=== PATIENT | male | born 1965 | race Caucasian/White ===

== ENCOUNTER → 2020-09-07 | Outpatient (CLI) | payer BC ==
[2020-09-07 09:32] LABS: Appearance,Urine Clear (Clear); Bilirubin,Urine Negative (Negative); Blood,Urine Negative (Negative); Color,Urine Yellow; Glucose,Urine (UA) Negative (Negative); Ketones,Urine Negative (Negative); Leukocyte Esterase,Urine Negative (Negative); Nitrite,Urine Negative (Negative); PH, Urine 5.5 (5.0-8.0); Protein,Urine Trace (Negative); Specific Gravity,Urine 1.028 (1.001-1.035); Urobilinogen,Urine <2.0 mg/dL (<2.0)
[2020-09-07 09:37] LABS: INR 0.9 (<1.2)
[2020-09-07 09:38] LABS: Prothrombin Time 9.8 sec (9.0-12.0)
[2020-09-07 09:40] LABS: Partial Thromboplastin Time 21.5 sec (22.0-30.0)
[2020-09-07 09:42] LABS: Basophils % (A) 1 %; Eosinophils # (A) 0.2 k/uL (0-0.7); Eosinophils % (A) 3 %; HCT 44.6 % (39.0-53.0); HGB 14.9 gm/dL (13.0-17.5); Lymphocytes # (A) 1.8 k/uL (1.0-4.8); Lymphocytes % (A) 31 %; MCH 29.7 pg (25.0-35.0); MCHC 33.3 g/dL (31.0-37.0); MCV 89.1 fL (80.0-100.0); Monocytes # (A) 0.3 k/uL (0-1.0); Monocytes % (A) 6 %; Neutrophils # (A) 3.5 k/uL (1.3-7.7); Neutrophils % (A) 59 %; Platelet Count 207 k/uL (150-450); RBC 5.01 m/uL (4.30-5.90); RDW 12.9 % (11.5-15.5); WBC 5.9 k/uL (3.8-10.6)
--- NOTE | 2020-09-07 09:55 | XR ---
EXAMINATION TYPE: XR chest 2V DATE OF EXAM: 09/07/2020 COMPARISON: NONE HISTORY: Preop spine surgery TECHNIQUE: Frontal and lateral views of the chest are obtained. FINDINGS: Heart size is within normal limits. No focal consolidation, pneumothorax or pleural effusi on. Prominent Left cardiophrenic fat pad. Degenerative changes of the thoracic spine. IMPRESSION: 1. No acute pulmonary disease. Prominent left cardiophrenic fat pad.
== END | disposition home or self-care (01) ==
LOC: LABPAT 08:20
PROVIDERS: ATTEND Orthopaedic Surgery Orthopaedic Surgery of the Spine
DX: Z01.818 Encounter for other preprocedural examination (principal); M51.9 Unspecified thoracic, thoracolumbar and lumbosacral intervertebral disc disorder
CPT/HCPCS: 36415; 71046; 81003; 85025; 85610; 85730; 87070; 87086

== ENCOUNTER → 2020-09-07 | Outpatient (CLI) | payer BC ==
[2020-09-07 21:03] LABS: African American GFR (CKD) 112.6 (60.0-200.0); Albumin 4.4 g/dL (3.80-4.90); Albumin/Globulin Ratio 2.44 (1.60-3.17); Anion Gap 10.4 mmol/L (4.00-12.00); BUN/Creat Ratio 17.78 Ratio (12.00-20.00); Calcium 9.6 mg/dL (8.7-10.3); Carbon Dioxide 25.6 mmol/L (21.6-31.8); Globulin 1.8 g/dL (1.6-3.3); Non-African American GFR(CKD) 97.2 (60.0-200.0); Potassium 4.3 mmol/L (3.5-5.5); Total Bilirubin 0.5 mg/dL (0.3-1.2); Total Protein 6.2 g/dL (6.2-8.2)
== END | disposition home or self-care (01) ==
LOC: LABWHC1 08:24
PROVIDERS: ATTEND Family Medicine
DX: Z00.00 Encounter for general adult medical examination without abnormal findings (principal)
CPT/HCPCS: 36415; 80053

== ENCOUNTER 2020-09-14 06:58 | Day surgery (SDC) | payer BC ==
[2020-09-07 15:14] VITALS: BMI 45.9
[~2020-09-14 06:58] MED LIST: ceFAZolin 1,000 MG in SODIUM CHLORIDE 0.9% IRRIGATIO 1,000 ML IRRIGATION PRN; ceFAZolin 3 GM in SODIUM CHLORIDE 0.9% 100 ML IVPB PRN
[2020-09-14] MEDS ORDERED: LIDOCAINE 1% (10MG/ML) FOR IV START INTRADERMA PRN (07:12)
[2020-09-14] MEDS ORDERED: ONDANSETRON 4 MG/2 ML VIAL IVP ONE (07:12)
[2020-09-14] MEDS ORDERED: LACTATED RINGERS 1,000 ML IV SCH (07:12)
[2020-09-14] MEDS ORDERED: fentaNYL (PF) 50 MCG/ML 2 ML AMP ONE (07:54)
[2020-09-14] MEDS ORDERED: SUCCINYLCHOLINE CHLORIDE VIAL 200 MG/10 ML VIAL IV ONE (07:54)
[2020-09-14] MEDS ORDERED: MIDAZOLAM 2 MG/2 ML VIAL ONE (07:54)
[2020-09-14] MEDS ORDERED: PHENYLEPHRINE-0.9% NACL SYG 1,000 MCG/10 ML SYRINGE ONE (07:54)
[2020-09-14] MEDS ORDERED: PROPOFOL 10 MG/ML 20 ML VIAL IV ONE (07:54)
[2020-09-14] MEDS ORDERED: LIDOCAINE 1% INJ 10MG/ML (20 ML MDV) ONE (07:54)
[2020-09-14] MEDS ORDERED: GLYCOPYRROLATE 0.2 MG/ML 2 ML VIAL ONE (07:54)
[2020-09-14] MEDS ORDERED: ROCURONIUM 10 MG/ML (5 ML VIAL) IV ONE (07:54)
[2020-09-14] MEDS ORDERED: NEOSTIGMINE 1 MG/ML 10 ML VIAL ONE (07:54)
[2020-09-14] MEDS ORDERED: methylPREDNISolone ACETATE 80 MG/ML 1 ML VIAL INJ ONE (08:41)
[2020-09-14] MEDS ORDERED: GELATIN SPONGE,ABSORB (LARGE) 1 EACH SPONGE TOPICAL ONE (08:41)
[2020-09-14] MEDS ORDERED: THROMBIN (BOVINE) 5,000 UNIT VIAL TOPICAL ONE (08:41)
[2020-09-14] MEDS ORDERED: LIDOCAINE 1%-EPI 1:100,000 20 ML VIAL SQ ONE (09:00)
[2020-09-14] MEDS ORDERED: LACTATED RINGERS 1,000 ML IV ONE (09:03)
[2020-09-14] MEDS ORDERED: ONDANSETRON 4 MG/2 ML VIAL IVP PRN (10:06)
[2020-09-14] MEDS ORDERED: HYDROcodone/APAP 5-325MG 1 EACH TAB PO PRN ×3 (10:06→10:09)
[2020-09-14] MEDS ORDERED: ACETAMINOPHEN TAB 325 MG TAB PO PRN (10:06)
[2020-09-14] MEDS ORDERED: CYCLOBENZAPRINE 10 MG TAB PO PRN (10:06)
[2020-09-14] MEDS ORDERED: diazePAM 5 MG TAB PO PRN (10:06)
[2020-09-14] MEDS ORDERED: HYDROmorphone 0.5 MG/0.5 ML SYRINGE IVP PRN (10:06)
[2020-09-14] MEDS ORDERED: HYDROmorphone 1 MG/ML 1 ML SYRINGE IVP PRN (10:06)
[2020-09-14] MEDS ORDERED: BENZOCAINE/MENTHOL LOZENG 1 EACH LOZENGE MUCOUS MEM PRN (10:06)
[2020-09-14] MEDS ORDERED: IBUPROFEN 800 MG TAB PO PRN (10:09)
--- NOTE | 2020-09-14 10:14 | P.OP ---
Date of Procedure: 09/14/20 Preoperative Diagnosis: Herniated nucleus pulposis L5-S1, left lower extremity radiculopathy, left lower extremity weakness Postoperative Diagnosis: Herniated nucleus pulposis L5-S1, left lower extremity radiculopathy, left lower extremity weakness Plus findings of large osteophytic spur at the L5-S1 vertebral body junction Anesthesia: GETA Pathology: none sent Condition: stable Disposition: PACU Description of Procedure: BRIEF OPERATIVE NOTE Preoperative Diagnosis:Herniated nucleus pulposis L5-S1, left lower extremity radiculopathy, left lower extremity weakness Postoperative Diagnosis:Herniated nucleus pulposis L5-S1, left lower extremity radiculopathy, left lower extremity weakness, plus findings a large posterior osteophytic spur at the posterior margin of the vertebral bodies of L5-S1 Procedure: Laminectomy and decompression L5-S1 with excision of osteophyte spur L5-S1 Discectomy for decompression L5-S1 Surgeon: Dr. Altman Associate Financial Advisor: Asim Calvo is present throughout the entire the case persistence during positioning, dissection, exposure, visualization, and all crucial elements of the case as well as closure. Anesthesia: General anesthesia Estimated blood loss: Approximately 50 mL Complications: None apparent Components implanted: None Disposition: To recovery room in good stable condition. OPERATIVE INDICATIONS The patient has been having issues in their lower back and lower extremities. Patient has been expressing symptoms at his back and lower extremities for several years. Over the past 5 or 6 years he's been receiving treatment in terms his back and his lower extremities. He is not having significant worsening over the past year and particularly the past several months. He is found have disc herniations both at L4 5 and L5-S1. His primary issue was that of radicular symptoms in his left lower extremity which correlated well with his disc herniation and findings at L5-S1 level on the left. There is large disc herniation with severe foraminal stenosis evidence of ossific spurring causing further stenosis at the level. The patient has been through conservative treatment. He is not having any prolonged benefit despite aggressive conservative treatment. We discussed various treatment options including surgery, and the patient wishes to proceed with surgery We discussed the risk, patient's alternatives and benefits of surgery including but not limited to, risk of bleeding risk of infection, risk of need for further surgery, risk of decreased, loss of motion, loss of function, nerve damage, paralysis, heart attack, blindness and . OPERATIVE SUMMARY After discussing all the risks, patient alternatives and benefits at length, the patient elected to proceed with surgical intervention, signed informed consent, and presented for their procedure. The patient was seen and examined in the preoperative holding area and the surgical site was marked. The patient was given antibiotics and brought to the operating room. The patient was sedated and intubated by anesthesia in standard fashion. The patient was positioned on to the operating room table in a prone position on the appropriate frame which was well-padded and well molded. We were careful to pad any bony prominences and pressure points. We were careful to maintain the patient's cervical spine and good neutral alignment and position throughout. The patient was prepped and draped in a normal standard fashion. An appropriate timeout and keystone protocol performed. We were able to proceed with the surgery. Fluoroscopy was utilized to establish the appropriate level. The local wound area was infiltrated with local anesthetic. An incision was made at the midline longitudinally over the appropriate levels at L5-S1. Dissection was taken down subcutaneously to the level of the fascia which was split midline. Dissection was taken over the lamina. Intraoperative fluoroscopy was taken which showed a marker at the appropriate level. With the appropriate level positively confirmed, we were able to proceed with laminectomy at L5-S1. The wound was copiously irrigated and suctioned dry as had been done periodically throughout the case. I performed a laminectomy with a combination of curettes and a high-speed bur and Kerrison rongeurs. A small medial facetectomy was performed again further access. A partial foraminotomy was also performed. Portions of the ligamentum flavum were taken down to expose the dura and traversing nerve root. I was able to mobilize the traversing nerve root and gain access to the disc space. Note was made of obvious compression from the disc. Protecting the soft tissue structures, a small annulotomy was established. I was able to perform discectomy and remove any extruded disc fragments and any loose fragments from within the disc itself. There is some severe disc desiccation noted. I tried to preserve the disc annulus that appeared stable. There is findings of large posterior spurring particularly at the inferior margin of L5 with old disc calcification which had to be removed piecemeal to further enhance the decompression. I was able to remove all loose fragments of disc and any loose annulus. There were no further extruded fragments noted. There is no evidence of dural tear or leak. There is some abrasive type of appearance to the traversing nerve root. The patient did not have any evidence of leak with Valsalva maneuver. I decided to place some Tisseel over the brace dura to enhance some healing at the area. There is no evidence of any dural leak with Valsalva maneuver. Good hemostasis maintained. The wound was copiously irrigated and suctioned dry. I placed 40 mg of Medrol over the peridural area prior to closure. Good decompression and discectomy was noted. We were able to proceed with closure. The fascia was closed for a watertight closure. The subcuticular tissue was closed with absorbable suture. The wound was cleaned and dried and dressed with the appropriate dressing. The drapes were broken down. The patient was gently rolled back onto their hospital bed being careful to maintain their cervical spine and good neutral alignment and position. They were woken up by anesthesia, extubated, and brought to the recovery room in good stable condition. The patient will be admitted to the hospital for observation and for appropriate postoperative care, medical management and monitoring. We will continue to follow them closely about the postoperative course.
--- NOTE | 2020-09-14 10:46 | FL ---
EXAMINATION TYPE: FL guidance operating room, XR lumbar spine 2 or 3V DATE OF EXAM: 09/14/2020 CLINICAL HISTORY: Low back pain. TECHNIQUE: Fluoroscopy. Lumbar spine intraoperative 2 views. COMPARISON: None. FINDINGS: Fluoroscopic guidance was provided during laminectomy and discectomy procedure performed ivana Altman. A total of 1 seconds of fluoroscopic time was utilized during the procedure and 1 spot intraoperative image is acquired. Intraoperative image shows metallic pointer localized near lumbosac ral junction for surgical planning. IMPRESSION: As Above.
[2020-09-14] MEDS: HYDROmorphone 0.5 MG/0.5 ML SYRINGE IVP PRN ×2 (11:04→11:17)
[2020-09-14] MEDS: KETOROLAC 15 MG/ML 1 ML VIAL IVP PRN ×2 (11:44→17:43)
[2020-09-14] MEDS: IBUPROFEN 600 MG TAB PO SCH ×2 (15:49→21:51)
[2020-09-14] MEDS: ceFAZolin 3 GM in SODIUM CHLORIDE 0.9% 100 ML IVPB SCH ×2 (15:49→23:07)
[2020-09-14] MEDS: SODIUM CHLORIDE 0.9% 1,000 ML IV SCH (15:50)
[2020-09-14 20:28] VITALS: RESP 18
[2020-09-15] MEDS: SODIUM CHLORIDE 0.9% 1,000 ML IV SCH ×2 (00:57→04:21)
[2020-09-15] MEDS: IBUPROFEN 600 MG TAB PO SCH (04:22)
[2020-09-15 05:50] VITALS: BP 125/76; PULSE 74; TEMP 97.9
[2020-09-15] MEDS ORDERED: LOSARTAN 50 MG TAB PO SCH (09:00)
--- NOTE | 2020-09-15 09:26 | P.DS ---
Providers Date of admission: 08/14/20 Attending physician: Ramin Altman Primary care physician: Matthias Urias MD Hospital Course: The patient presented on the day of admission as per their operative note. He feels he is making progress. He says the sharp pain in his left lower extremity is improved. He is not having any headaches. He is sitting up walking around quite well. He is voiding freely. Physical Exam The incision site is clean dry and intact. There is no erythema no drainage. There is no purulence no evidence of infection. Abdomen soft and nontender. Chest has good excursion with deep inspiration and expiration. The patient has active and passive range of motion intact at the upper and lower extremities. There is no acute change in neurologic status. He has sustained dorsal to plantar flexion and EHL intact Hospital Course Postoperative day #1 status post laminectomy decompression with discectomy at L5-S1 for his herniated nucleus pulposis and left lower extremity radiculopathy with weakness. The patient has been making good progress postoperatively. They have completed the prophylactic antibiotics without any signs or symptoms of infection. The patient has been able to advance their diet, and is tolerating diet adequately. The pain was initially controlled with IV medications and is now controlled appropriately with oral medications. The patient has been able to increase their mobilization. He is ambulatory and moving well. He denies any headaches or nausea or vomiting. He feels his legs improving. The patient has progressed appropriately. I think they are in good stable condition for discharge today. They will be sent home with appropriate prescriptions. I answered their questions to the best of my ability in a language that they can understand and they are agreeable with the plan. They will follow up as directed in approximately 2 weeks or sooner if he is having problems. Patient Condition at Discharge: Good Plan - Discharge Summary Discharge Rx Participant: No New Discharge Prescriptions: New HYDROcodone/APAP 5-325MG [[place] 5] 1 each PO Q6HR PRN #28 tab PRN Reason: Pain No Action Ibuprofen [Motrin] 800 mg PO Q8H PRN PRN Reason: Pain Losartan Potassium 50 mg PO DAILY HYDROcodone/APAP 5-325MG [[place] 5-325] 1 tab PO DAILY PRN PRN Reason: Pain Discharge Medication List HYDROcodone/APAP 5-325MG [[place] 5-325] 1 tab PO DAILY PRN 09/07/20 [History] Ibuprofen [Motrin] 800 mg PO Q8H PRN 09/07/20 [History] Losartan Potassium 50 mg PO DAILY 09/07/20 [History] HYDROcodone/APAP 5-325MG [[place] 5] 1 each PO Q6HR PRN #28 tab 09/15/20 [Rx] Follow up Appointment(s)/Referral(s): Ramin Altman, [Doctor of Osteopathic Medicine] - 09/26/20 9:50 am Patient Instructions/Handouts: Hydrocodone/Acetaminophen (By mouth), Surgical Site Infections (DC) Activity/Diet/Wound Care/Special Instructions: keep site clean and intact keep dressing intact , may remove on Saturday and may leave uncovered may shower with waterproof dressing intact. do not soak in a tub light activity only no bending, twisting, or lifting ambulate as tolerated Discharge Disposition: HOME SELF-CARE
== END 2020-09-15 09:39 | disposition home or self-care (01) ==
LOC: OR 06:58 → 5NMEDONC 11:15 → OR 09-15 09:39
PROVIDERS: ATTEND Orthopaedic Surgery Orthopaedic Surgery of the Spine
DX: M51.16 Intervertebral disc disorders with radiculopathy, lumbar region (principal); M25.78 Osteophyte, vertebrae; Z98.890 Other specified postprocedural states; Z87.891 Personal history of nicotine dependence; I10 Essential (primary) hypertension; G47.33 Obstructive sleep apnea (adult) (pediatric); Z20.822 Contact with and (suspected) exposure to COVID-19; Z79.899 Other long term (current) drug therapy; Z79.1 Long term (current) use of non-steroidal anti-inflammatories (NSAID); Z79.891 Long term (current) use of opiate analgesic; Z88.8 Allergy status to other drugs, medicaments and biological substances
CPT/HCPCS: 86900; 86901; 86850; 87635; 72100; 63030; C1762; J2250; J0330; J1040; J2710; J0690 ×2; J2405; J2001; J3010; J1885; J2370; J2704; J1170

== ENCOUNTER → 2021-01-05 | Outpatient (CLI) | payer BC ==
[2021-01-05 09:01] LABS: Basophils % (A) 1 %; Eosinophils # (A) 0.1 k/uL (0-0.7); Eosinophils % (A) 2 %; HGB 14.6 gm/dL (13.0-17.5); Lymphocytes # (A) 1.5 k/uL (1.0-4.8); Lymphocytes % (A) 27 %; MCH 29.7 pg (25.0-35.0); MCHC 33.2 g/dL (31.0-37.0); MCV 89.4 fL (80.0-100.0); Mean Platelet Volume 7.5; Monocytes # (A) 0.3 k/uL (0-1.0); Monocytes % (A) 5 %; Neutrophils # (A) 3.5 k/uL (1.3-7.7); Neutrophils % (A) 64 %; Platelet Count 220 k/uL (150-450); RBC 4.92 m/uL (4.30-5.90); RDW 11.7 % (11.5-15.5); WBC 5.5 k/uL (3.8-10.6)
[2021-01-05 09:08] LABS: INR 0.9 (<1.2); Partial Thromboplastin Time 22.5 sec (22.0-30.0)
[2021-01-05 09:18] LABS: African American GFR (CKD) >90 (>60 ml/min/1.73 sqM); Anion Gap 7 mmol/L; Blood Urea Nitrogen 19 mg/dL (9-20); Calcium 9.8 mg/dL (8.4-10.2); Carbon Dioxide 29 mmol/L (22-30); Chloride 105 mmol/L (98-107); Glucose 114 mg/dL (74-99); Non-African American GFR(CKD) >90 (>60 ml/min/1.73 sqM); Sodium 141 mmol/L (137-145)
[2021-01-05 09:53] LABS: Appearance,Urine Clear (Clear); Bilirubin,Urine Negative (Negative); Blood,Urine Negative (Negative); Color,Urine Yellow; Glucose,Urine (UA) Negative (Negative); Ketones,Urine Negative (Negative); Leukocyte Esterase,Urine Negative (Negative); Nitrite,Urine Negative (Negative); PH, Urine 5.5 (5.0-8.0); Protein,Urine Trace (Negative); Specific Gravity,Urine 1.026 (1.001-1.035); Urobilinogen,Urine <2.0 mg/dL (<2.0)
--- NOTE | 2021-01-05 12:10 | XR ---
EXAMINATION TYPE: XR chest 2V DATE OF EXAM: 01/05/2021 COMPARISON: Chest x-ray 09/07/2020 HISTORY: Presurgical for lumbar fusion TECHNIQUE: Frontal and lateral views of the chest are obtained. FINDINGS: There is no focal air space opacity, pleural effusion, or pneumothorax seen. The cardiac silhouette size is within normal limits. The osseous structures are intact. IMPRESSION: No acute cardiopulmonary process.
== END | disposition home or self-care (01) ==
LOC: LABPAT 08:11
PROVIDERS: ATTEND Orthopaedic Surgery Orthopaedic Surgery of the Spine
DX: Z01.818 Encounter for other preprocedural examination (principal); M43.26 Fusion of spine, lumbar region; M51.26 Other intervertebral disc displacement, lumbar region
CPT/HCPCS: 36415; 71046; 80048; 81003; 85025; 85610; 85730

== ENCOUNTER 2021-01-11 07:45 | Inpatient (IN) | payer BC ==
[2021-01-11] MEDS ORDERED: SCOPOLAMINE 1.5MG/72HR PATCH TRANSDERM ONE (08:08)
[2021-01-11] MEDS ORDERED: ONDANSETRON 4 MG/2 ML VIAL IVP ONE (08:08)
[2021-01-11] MEDS ORDERED: LIDOCAINE 1% (10MG/ML) FOR IV START INTRADERMA PRN (08:08)
[2021-01-11] MEDS: LACTATED RINGERS 1,000 ML IV SCH (08:35)
[2021-01-11] MEDS ORDERED: MIDAZOLAM 2 MG/2 ML VIAL ONE (09:58)
[2021-01-11] MEDS ORDERED: GLYCOPYRROLATE 0.2 MG/ML 2 ML VIAL ONE (09:58)
[2021-01-11] MEDS ORDERED: SUCCINYLCHOLINE CHLORIDE VIAL 200 MG/10 ML VIAL IV ONE (09:58)
[2021-01-11] MEDS ORDERED: ROCURONIUM 10 MG/ML (5 ML VIAL) IV ONE (09:58)
[2021-01-11] MEDS ORDERED: PROPOFOL 10 MG/ML 20 ML VIAL IV ONE (09:58)
[2021-01-11] MEDS ORDERED: fentaNYL (PF) 50 MCG/ML 2 ML AMP ONE (09:58)
[2021-01-11] MEDS ORDERED: NEOSTIGMINE 1 MG/ML 10 ML VIAL ONE (09:58)
[2021-01-11] MEDS ORDERED: PHENYLEPHRINE-0.9% NACL SYG 1,000 MCG/10 ML SYRINGE ONE (09:58)
[2021-01-11] MEDS ORDERED: HYDROmorphone (PF) 1 MG/ML ONE (09:58)
[2021-01-11] MEDS ORDERED: LIDOCAINE 1% INJ 10MG/ML (20 ML MDV) ONE (09:58)
[2021-01-11] MEDS ORDERED: ePHEDrine SULFATE/0.9% NACL/PF 50 MG/5 ML SYRINGE IV ONE (09:58)
[2021-01-11] MEDS ORDERED: GELATIN SPONGE,ABSORB (LARGE) 1 EACH SPONGE TOPICAL ONE (10:00)
[2021-01-11] MEDS ORDERED: LIDOCAINE 0.5%-EPI 1:200,000 50 ML VIAL SQ ONE (10:00)
[2021-01-11] MEDS ORDERED: THROMBIN (BOVINE) 5,000 UNIT VIAL TOPICAL ONE (10:00)
[2021-01-11] MEDS ORDERED: LACTATED RINGERS 1,000 ML IV ONE (11:56)
[2021-01-11] MEDS ORDERED: HYDROmorphone 0.5 MG/0.5 ML SYRINGE IVP PRN (13:39)
[2021-01-11] MEDS ORDERED: ONDANSETRON 4 MG/2 ML VIAL IVP PRN (13:39)
[2021-01-11] MEDS ORDERED: SENNOSIDES-DOCUSATE SODIUM 1 EACH TAB PO PRN (13:39)
[2021-01-11] MEDS ORDERED: MAGNESIUM HYDROXIDE 2,400 MG/10 ML CUP PO PRN (13:39)
[2021-01-11] MEDS ORDERED: BENZOCAINE/MENTHOL LOZENG 1 EACH LOZENGE MUCOUS MEM PRN (13:39)
--- NOTE | 2021-01-11 13:49 | P.OP ---
Date of Procedure: 01/11/21 Preoperative Diagnosis: Recurrent disc herniation L5-S1, lower extremity radiculopathy, lower extremity weakness, low back pain, and degenerative disc disease, morbid obesity, history of lumbar laminectomy decompression L5-S1 Postoperative Diagnosis: Same Anesthesia: GETA Pathology: none sent Condition: stable Disposition: PACU Description of Procedure: DESCRIPTION OF PROCEDURE(S): BRIEF OPERATIVE NOTE Preoperative Diagnosis: Recurrent disc herniation L5-S1, lower extremity radiculopathy, lower extremity weakness, low back pain, and degenerative disc disease, morbid obesity, history of lumbar laminectomy decompression L5-S1 Postoperative Diagnosis: Same Procedure: Increased level of difficulty with increased time due to patient's body habitus with BMI over 46 Revision Laminectomy and decompression L5-S1 Computer CT navigation aided Minimally invasive Posterior lateral decompression and fusion L5-S1 Minimally invasive Transforaminal lumbar interbody fusion for a 360 fusion L5-S1 Revision Discectomy for decompression L5-S1 Placement of interbody graft L5-S1 Use of computer navigation for fusion Local autogenous bone grafting Aspiration of bone marrow from the vertebral body pedicle of L5 on the right Use of bone graft extenders Surgeon: Dr. Altman Appellate Conferee: Asim SALDANA who is present throughout the entire the case persistence during positioning, dissection, exposure, visualization, and all crucial elements of the case as well as closure. Anesthesia: General anesthesia per Estimated blood loss: Approximately 200 mL Complications: None apparent Components implanted: K2M minimally invasive Lincoln pedicle screw system withscrews measuring 6.5 mm in diameter to rods one Weiser interbody cage with 10 mL of osteo amp bio4 bone graft substitute and 30 mL of the BX bone fibers to supplement the local autogenous bone graft and bone marrow aspirate Disposition: To recovery room in good stable condition. OPERATIVE INDICATIONS The patient has had severe issues at their lower extremity over and is 1 distribution with significant worsening over the past months. Over the past months the patient had pain at their back and their lower extremities. The patient is having severe radicular symptoms at their lower extremity with weakness. The patient is having significant pain in their back. They are unable to obtain any comfort. The patient had a large disc herniation at L5-S1 in the past and after failing conservative treatment healed we underwent laminectomy decompression at L5-S1 with discectomy for decompression. Initially after surgery he did very well. He had a couple of months of excellent relief but then started having increasing pain in his low back and into his lower extremity. Over the past month and a half he has had severe worsening of his pain in his left lower extremity with radiculopathy and recurrent weakness. He was found have recurrent disc herniation at L5-S1 space. There is no evidence of any infectious process. We did aggressive conservative treatment with medications therapy and interventional pain management however thery were not having any relief. The patient also showed evidence of a listhesis with some dynamic instability. The patient has been through conservative treatment. We discussed various treatment options including surgery, and the patient wishes to proceed with surgery We discussed the risk, patient's alternatives and benefits of surgery including but not limited to, risk of bleeding risk of infection, risk of need for further surgery, risk of decreased, loss of motion, muscle function, malunion nonunion, hardware failure, nerve damage, paralysis, heart attack, blindness and . They understood issues with the current pandemic and the possibility of exposure. OPERATIVE SUMMARY After discussing all the risks, patient alternatives and benefits at length, the patient elected to proceed with surgical intervention, signed informed consent, and presented for their procedure. The patient was seen and examined in the preoperative holding area and the surgical site was marked. The patient was given antibiotics and brought to the operating room. The patient was sedated and intubated by anesthesia in standard fashion. The patient was positioned on to the operating room table in a prone position on the appropriate frame which was well-padded and well molded. We were careful to pad any bony prominences and pressure points. We were careful to maintain the patient's cervical spine and good neutral alignment and position throughout. The patient was prepped and draped in a normal standard fashion. An appropriate timeout and keystone protocol performed. We were able to proceed with the surgery. The local wound area was infiltrated with local anesthetic. Over the right iliac crest I was able to make small stab incisions and establish a guidepin screw fixation to the iliac crest 2. I was able place the computer referencing device over the guidepins to establish an appropriate reference point for the Ziem CT navigation. There was increased time and effort during the case throughout each step of the case due to patient's body habitus and BMI over 46. We were able to continue with case. We then were able to place patient in an appropriate drape and do a navigation spin for visualization and 3-D reconstruction of the lumbar spine. I was able utilize C-arm guidance and navigation to establish appropriate position over the pedicles bilaterally at the appropriate levels . With the appropriate levels confirmed was able to make small incisions over the appropriate pedicle sites bilaterally. Utilizing the computer navigation device I was able to establish bony landmarks at the right iliac crest for a bony reference point for the navigation device. I was able to establish a Jamshidi needle over the lateral aspect of the pedicle and advanced the trocar into the pedicle being careful not to breech superiorly inferiorly medially or laterally using computer navigation device. Position was confirmed regularly with AP and lateral images on C-arm and with the computer navigation device at the appropriate levels bilaterally. With patience size it was somewhat difficult to get far lateral but we'll put able to get good position of the screw sites and the starting positions for the screws. I was able to establish the trocar into the pedicle appropriately into the posterior aspect of the vertebral body bilaterally at the appropriate levels. This was done at each of the pedicle positions and each of the vertebrae. At the superior vertebrae I was able to take approximately 25 mL of bone aspiration for use later in the case to supplement the allograft and autograft bone. I was able place the guidewire into the trocar and into the vertebral body appropriately under C-arm guidance. Dissection was taken down over the wire to the appropriate starting position for the screw placed. The appropriate length screw was chosen, threaded over the guidewire and screwed appropriately into the pedicle and vertebral body under C-arm guidance in excellent alignment and position with good bony purchase. This is done at each of the screw sites at the appropriate levels at L5 and S1 bilaterally.. With the screws intact I extended the incision to connect the screw hole sites on the most symptomatic side on the left at L5-S1. I dissected down to estab trent access over the pars and lamina to the base of the spinous process. I was able to expose the facet joint. The capsule the facet was taken down and showed some facet arthrosis at the joint. I was able to perform a revision laminectomy decompression at this level. No was made of significant scar tissue formation around the dura and traversing nerve root. I was able to use a combination of curettes and Kerrison rongeurs and a high-speed drill to take down the facet joint and do a facetectomy. I was able get excellent foraminal decompression and central decompression with undermining across midline to perform a laminectomy centrally and contralaterally. As able get good central decompression. The ligamentum flavum was taken down to further decompress centrally and at bilateral neural foramen. I was able to expose the disc space and visualize the traversing nerve root. Note was made of some disc recurrent herniation and disc herniation that was abutting the traversing nerve root at the level causing further compression of the nerve root. I was able to extend the annulotomy at the appropriate level protecting soft tissue and neural structures. Note was made of some disc desiccation at the disc and significant disc loss. There is a significant amount of scar tissue formation around the traversing nerve root and I took out as much as possible without damaging the nerve root itself. This allowed further freeing up of the nerve and further decompression of the nerve. I performed a complete discectomy with accommodation of curettes and rasps and scrapers. I was able get good endplate preparation at the disc space. I sized for the appropriate size interbody spacer protecting the soft tissue and neural structures. The wound was copiously irrigated and suctioned dry. There is no evidence of any dural tear or leak. I was able to pack the disc space with local autogenous bone graft as well as a small amount of bone graft which was also placed into the interbody cage itself. Protecting the soft tissue structures and neural structures I was able place the interbody cage in good alignment and good position with good fit and fill at the interbody space. Position was confirmed with C-arm guidance. Good hemostasis maintained. There is no evidence of any dural tear or leak. The wound was irrigated and suctioned dry. With the hardware intact, intraoperative C-arm imaging was again taken which showed good alignment and position of the hardware at the appropriate levels. We were then able to measure, contour and place the rods and appropriate hardwa re bilaterally at L5-S1. I was able to place capcrews, tighten them down, and torque them with the torque screwdriver appropriately. With this intact I was able to place the local autogenous bone graft with additional bone graft enhancer as necessary into the posterior lateral gutters over the decorticated transverse processes and facet joints on the contralateral side. The remainder of the bone graft was placed over the facet joint on the contralateral side after taking down the facet joint capsule. With the bone graft intact, a stable construct, and good decompression at the appropriate levels, we were able to proceed with closure. Good hemostasis was maintained. There is no evidence of dural tear or leak. The fascia was closed for a watertight closure. he subcuticular tissue was closed with absorbable suture. The wound was cleaned and dried and dressed with the appropriate dressing. The drapes were broken down. The patient was gently rolled back onto their hospital bed being careful to maintain their cervical spine and good neutral alignment and position. They were woken up by anesthesia, extubated, and brought to the recovery room in good stable condition. The patient will be admitted to the hospital for appropriate postoperative care, medical management and monitoring. We will continue to follow them closely about the postoperative course.
[2021-01-11] MEDS: HYDROmorphone 0.5 MG/0.5 ML SYRINGE IVP PRN ×3 (14:01→14:25)
--- NOTE | 2021-01-11 14:17 | FL ---
Fluoroscopy History: MIN. INVASIVE LUMBAR FUSION MIN. INVASIVE LUMBAR FUSION . 17 SEC FL TIME. 4 PICS SCANNED
[2021-01-11] MEDS ORDERED: SODIUM CHLORIDE 0.9% 1,000 ML IV ONE (14:38)
[2021-01-11] MEDS: HYDROcodone/APAP 5-325MG 1 EACH TAB PO PRN (15:51)
[2021-01-11] MEDS: ceFAZolin 3 GM in SODIUM CHLORIDE 0.9% 100 ML IVPB SCH (18:15)
[2021-01-11] MEDS: SODIUM CHLORIDE 0.9% 1,000 ML IV SCH (18:18)
[2021-01-11] MEDS: GABAPENTIN 100 MG CAP PO SCH (20:23)
[2021-01-11] MEDS: CYCLOBENZAPRINE 10 MG TAB PO PRN (20:25)
[2021-01-12] MEDS: ceFAZolin 3 GM in SODIUM CHLORIDE 0.9% 100 ML IVPB SCH (02:15)
[2021-01-12] MEDS: SODIUM CHLORIDE 0.9% 1,000 ML IV SCH ×2 (02:15→17:43)
[2021-01-12] MEDS: HYDROcodone/APAP 5-325MG 1 EACH TAB PO PRN ×5 (02:28→20:23)
[2021-01-12] MEDS: ACETAMINOPHEN TAB 500 MG TAB PO PRN ×2 (05:54→20:08)
[2021-01-12] MEDS: LOSARTAN 50 MG TAB PO SCH (08:00)
[2021-01-12] MEDS: GABAPENTIN 100 MG CAP PO SCH ×2 (08:00→20:08)
[2021-01-12 08:16] LABS: African American GFR (CKD) >90 (>60 ml/min/1.73 sqM); Anion Gap 8 mmol/L; Blood Urea Nitrogen 10 mg/dL (9-20); Calcium 9.2 mg/dL (8.4-10.2); Carbon Dioxide 24 mmol/L (22-30); Chloride 108 mmol/L (98-107); Glucose 134 mg/dL (74-99); Non-African American GFR(CKD) >90 (>60 ml/min/1.73 sqM); Potassium 3.9 mmol/L (3.5-5.1); Sodium 140 mmol/L (137-145)
--- NOTE | 2021-01-12 08:44 | P.PN ---
Progress Note - Text Progress Note Date: 01/12/21 Postoperative day #1 Patient is seen and examined today at bedside. The patient has some pain around the surgical site as expected. Pain is being controlled with medication. He has been able to sit up at side of his bed but he has not been able to get up and walk on his own yet. He is tolerating his regular diet. He says his leg is improving he has soreness in his back at the surgery site. Physical Exam Afebrile with stable vital signs Abdomen is soft nontender. Chest has good excursion deep and space expiration The incision site is clean dry and intact. No erythema there is no purulence. The surgery site is clear there is no active drainage. Extremities have not had neurologic change from prior to surgery. Calves and thighs were soft nontender without evidence of DVT. He has sustained dorsal flexion plantar flexion and EHL intact. Assessment/Plan Postoperative day #1 status post revision laminectomy decompression with fusion L5-S1 for his recurrent disc herniation and disc degeneration and lower extremity radiculopathy Patient is progressing as expected from the surgery. The patient has been making good progress thus far and he is hopeful to go home today or possibly tomorrow. He still having some difficulty with his mobilization but is if he is able to walk around on his own and get in and out of bed on his own we may be able to be discharged home potentially this afternoon or tomorrow morning. I discussed this with him and he understands. he is hoping to go home as soon as he can. We will continue to increase the patient's mobilization with therapy. We will continue pain control with oral or IV medications. We'll continue to follow patient closely.
--- NOTE | 2021-01-12 08:51 | P.DS ---
Providers Date of admission: 01/11/21 Attending physician: Ramin Altman Primary care physician: Matthias Urias MD Hospital Course: Postoperative day #1 Patient is seen and examined today at bedside. The patient has some pain around the surgical site as expected. Pain is being controlled with medication. He has been able to sit up at side of his bed but he has not been able to get up and walk on his own yet. He is tolerating his regular diet. He says his leg is improving he has soreness in his back at the surgery site. Physical Exam Afebrile with stable vital signs Abdomen is soft nontender. Chest has good excursion deep and space expiration The incision site is clean dry and intact. No erythema there is no purulence. The surgery site is clear there is no active drainage. Extremities have not had neurologic change from prior to surgery. Calves and thighs were soft nontender without evidence of DVT. He has sustained dorsal flexion plantar flexion and EHL intact. Assessment/Plan Postoperative day #1 status post revision laminectomy decompression with fusion L5-S1 for his recurrent disc herniation and disc degeneration and lower extremity radiculopathy Patient is progressing as expected from the surgery. The patient has been making good progress thus far and he is hopeful to go home today or possibly tomorrow. He still having some difficulty with his mobilization but is if he is able to walk around on his own and get in and out of bed on his own we may be able to be discharged home potentially this afternoon or tomorrow morning. I discussed this with him and he understands. he is hoping to go home as soon as he can. If he is able to be the appropriate criteria for discharge with his safety with ambulation, changing positions, voiding and tolerating diet and oral pain medications appropriately then we can consider discharge home today. We will continue to increase the patient's mobilization with therapy. We will continue pain control with oral or IV medications. We'll continue to follow patient closely. Patient Condition at Discharge: Good Plan - Discharge Summary Discharge Rx Participant: Yes New Discharge Prescriptions: New Cyclobenzaprine [Flexeril] 10 mg PO TID PRN #90 tab PRN Reason: Spasms HYDROcodone/APAP 5-325MG [[place] 5] 1 each PO Q4HR PRN #42 tab PRN Reason: Pain Discontinued Ibuprofen [Motrin] 800 mg PO Q8H PRN PRN Reason: Pain No Action Losartan Potassium 50 mg PO QAM HYDROcodone/APAP 5-325MG [[place] 5] 1 each PO Q6HR PRN #28 tab PRN Reason: Pain Gabapentin [Neurontin] 100 mg PO BID Discharge Medication List Losartan Potassium 50 mg PO QAM 09/07/20 [History] HYDROcodone/APAP 5-325MG [[place] 5] 1 each PO Q6HR PRN #28 tab 09/15/20 [Rx] Gabapentin [Neurontin] 100 mg PO BID 01/06/21 [History] Cyclobenzaprine [Flexeril] 10 mg PO TID PRN #90 tab 01/12/21 [Rx] HYDROcodone/APAP 5-325MG [[place] 5] 1 each PO Q4HR PRN #42 tab 01/12/21 [Rx] Follow up Appointment(s)/Referral(s): Ramin Altman DO [Doctor of Osteopathic Medicine] - 2 Weeks Discharge Disposition: HOME SELF-CARE
[2021-01-12] MEDS: LACTATED RINGERS 1,000 ML IV SCH (09:31)
[2021-01-12 11:11] LABS: Basophils # (A) 0.02 X 10*3/uL (0.00-0.10); Basophils % (A) 0.3 %; Eosinophils # (A) 0.04 X 10*3/uL (0.04-0.35); Eosinophils % (A) 0.6 %; HCT 42.5 % (39.6-50.0); HGB 13.9 g/dL (13.0-17.0); Lymphocytes # (A) 0.88 X 10*3/uL (0.90-5.00); Lymphocytes % (A) 13.3 %; MCH 29.2 pg (27.0-32.0); MCHC 32.7 g/dL (32.0-37.0); MCV 89.3 fL (80.0-97.0); Monocytes # (A) 0.57 X 10*3/uL (0.20-1.00); Monocytes % (A) 8.6 %; Neutrophils # (A) 5.08 X 10*3/uL (1.80-7.70); Neutrophils % (A) 76.9 %; Platelet Count 221 X 10*3/uL (140-440); RBC 4.76 X 10*6/uL (4.40-5.60); RDW 11.9 % (11.5-14.5); WBC 6.61 X 10*3/uL (4.50-10.00)
[2021-01-12] MEDS: HYDROmorphone 1 MG/ML 1 ML SYRINGE IVP PRN (13:33)
[2021-01-13] MEDS: HYDROcodone/APAP 5-325MG 1 EACH TAB PO PRN ×5 (00:58→23:34)
[2021-01-13] MEDS: HYDROmorphone 1 MG/ML 1 ML SYRINGE IVP PRN (05:40)
[2021-01-13] MEDS: GABAPENTIN 100 MG CAP PO SCH ×2 (08:20→20:12)
[2021-01-13] MEDS: LOSARTAN 50 MG TAB PO SCH (08:20)
--- NOTE | 2021-01-13 08:21 | P.PN ---
Progress Note - Text Progress Note Date: 01/13/21 Postoperative day #2 Patient is seen and examined today at bedside. The patient has some pain around the surgical site as expected. He is still having some difficulty with tolerating oral medications adequately and is requiring occasional IV medication due to his low back pain Pain is being controlled with medication. Physical Exam Afebrile with stable vital signs Abdomen is soft nontender. Chest has good excursion deep and space expiration The incision site is clean dry and intact. No erythema there is no purulence. Extremities have not had neurologic change from prior to surgery. He has sustained dorsal flexion plantar flexion and EHL intact Calves and thighs were soft nontender without evidence of DVT. Assessment/Plan Postoperative day #2 status post revision laminectomy decompression with fusion L5-S1 for his recurrent disc herniation and severe disc degeneration Patient is progressing somewhat slowly from the surgery. He is having some difficulty with pain control and his mobility and it is difficult to determine if he'll able to be discharged home today. He may need another day before he is able to go home. We will continue to increase the patient's mobilization with therapy. We will continue pain control with oral or IV medications. We'll continue to f ollow patient closely.
[2021-01-13] MEDS: CYCLOBENZAPRINE 10 MG TAB PO PRN (13:36)
[2021-01-13] MEDS: LACTATED RINGERS 1,000 ML IV SCH ×2 (17:40→20:14)
[2021-01-13] MEDS: SODIUM CHLORIDE 0.9% 1,000 ML IV SCH ×2 (19:54→20:14)
[2021-01-14 05:53] VITALS: RESP 18
[2021-01-14] MEDS: HYDROcodone/APAP 5-325MG 1 EACH TAB PO PRN ×3 (06:23→14:29)
[2021-01-14] MEDS: GABAPENTIN 100 MG CAP PO SCH (07:45)
[2021-01-14] MEDS: LOSARTAN 50 MG TAB PO SCH (07:46)
[2021-01-14] MEDS: SODIUM CHLORIDE 0.9% 1,000 ML IV SCH (07:46)
[2021-01-14 08:54] VITALS: BP 140/88; PULSE 101; TEMP 99.2
--- NOTE | 2021-01-14 12:48 | P.DS ---
Providers Date of admission: 01/13/21 13:01 Attending physician: Ramin Altman Primary care physician: Matthias Urias MD Hospital Course: The patient presented on the day of admission as per their operative note. He underwent revision decompression at L5-S1 with fusion L5-S1 for his recurrent disc herniation and stenosis and degenerative disc disease. He is making progress in terms of his legs and is making progress in terms of his mobility is still having pain requiring oral medications. He is tolerating his regular diet. He is passing gas and voiding freely. He has been able to walk up and down the halls but he has some difficulty getting in and out of bed but only needs mild assistance Physical Exam The incision site is clean dry and intact. There is no erythema no drainage. There is no purulence no evidence of infection. Abdomen soft and nontender. Chest has good excursion with deep inspiration and expiration. The patient has active and passive range of motion intact at the upper and lower extremities. There is no acute change in neurologic status. He has sustained dorsal to plantar flexion and EHL intact Hospital Course Postoperative day #3 status post revision laminectomy decompression with fusion L5-S1 for his recurrent disc herniation stenosis and lower extremity radiculopathy The patient has been making good progress postoperatively. They have completed the prophylactic antibiotics without any signs or symptoms of infection. He was initially advanced somewhat slowly but seems to have turned a little bit of a coronary and is mobilizing better. The patient has been able to advance their diet, and is tolerating diet adequately. The pain was initially controlled with IV medications and is now controlled appropriately with oral medications. The patient has been able to increase their mobilization. He has good help at home with his and feels that he will be able get in and out of bed with minimal assistance and with her there. The patient has progressed appropriately. I think they are in good stable condition for discharge today. They will be sent home with appropriate prescriptions. I answered their questions to the best of my ability in a language that they can understand and they are agreeable with the plan. They will follow up as directed in approximately 2 weeks or sooner if he is having problems. Patient Condition at Discharge: Good Plan - Discharge Summary Discharge Rx Participant: Yes New Discharge Prescriptions: New Cyclobenzaprine [Flexeril] 10 mg PO TID PRN #90 tab PRN Reason: Spasms HYDROcodone/APAP 5-325MG [[place] 5] 1 each PO Q4HR PRN #42 tab PRN Reason: Pain Discontinued Ibuprofen [Motrin] 800 mg PO Q8H PRN PRN Reason: Pain No Action Losartan Potassium 50 mg PO QAM HYDROcodone/APAP 5-325MG [[place] 5] 1 each PO Q6HR PRN #28 tab PRN Reason: Pain Gabapentin [Neurontin] 100 mg PO BID Discharge Medication List Losartan Potassium 50 mg PO QAM 09/07/20 [History] HYDROcodone/APAP 5-325MG [[place] 5] 1 each PO Q6HR PRN #28 tab 09/15/20 [Rx] Gabapentin [Neurontin] 100 mg PO BID 01/06/21 [History] Cyclobenzaprine [Flexeril] 10 mg PO TID PRN #90 tab 01/12/21 [Rx] HYDROcodone/APAP 5-325MG [[place] 5] 1 each PO Q4HR PRN #42 tab 01/12/21 [Rx] Follow up Appointment(s)/Referral(s): Ramin Altman DO [Doctor of Osteopathic Medicine] - 01/30/21 3:15 pm [facility], [NON-STAFF] - Activity/Diet/Wound Care/Special Instructions: Keep site clean. May shower with waterproof Tegaderm intact. Do not soak in a tub. On Saturday the patient May remove dressing and then may shower with area uncovered. Leave glue intact and allow it to fray off on its own. May ambulate as tolerated. Avoid heavy or rigorous activity. No repetitive bending twisting or lifting. No overhead work. Discharge Disposition: HOME SELF-CARE
== END 2021-01-14 14:38 | disposition home or self-care (01) | DRG 454 ==
LOC: OR 07:45 → 4SSUR 15:13 → OR 01-13 13:01
PROVIDERS: ADMIT Orthopaedic Surgery Orthopaedic Surgery of the Spine; ATTEND Orthopaedic Surgery Orthopaedic Surgery of the Spine
PROC: 0SG3071 Fusion of Lumbosacral Joint with Autologous Tissue Substitute, Posterior Approach, Posterior Column, Open Approach (ICD-10-PCS; 2021-01-11)
PROC: 01NB0ZZ Release Lumbar Nerve, Open Approach (ICD-10-PCS; 2021-01-11)
PROC: 0SG30AJ Fusion of Lumbosacral Joint with Interbody Fusion Device, Posterior Approach, Anterior Column, Open Approach (ICD-10-PCS; principal; 2021-01-11 09:00)
PROC: 0SB40ZZ Excision of Lumbosacral Disc, Open Approach (ICD-10-PCS; 2021-01-12)
DX: M51.37 Other intervertebral disc degeneration, lumbosacral region (principal); Z68.42 Body mass index [BMI] 45.0-49.9, adult; M51.27 Other intervertebral disc displacement, lumbosacral region; M51.16 Intervertebral disc disorders with radiculopathy, lumbar region; E66.01 Morbid (severe) obesity due to excess calories; Z20.822 Contact with and (suspected) exposure to COVID-19; Z98.1 Arthrodesis status
CPT/HCPCS: 72100; 80048; 85025; 86850; 86900; 86901; 87635

== ENCOUNTER 2021-02-01 21:01 | Observation (INO) | payer BC ==
[2021-02-01] MEDS ORDERED: KETOROLAC 15 MG/ML 1 ML VIAL IVP STA (21:27)
[2021-02-01] MEDS ORDERED: SODIUM CHLORIDE 0.9% 1,000 ML IV STA ×2 (21:27)
[2021-02-01] MEDS ORDERED: ACETAMINOPHEN TAB 500 MG TAB PO STA (21:27)
[2021-02-01] MEDS ORDERED: DIAZEPAM 5 MG/ML 2 ML INJ IVP STA (21:55)
[2021-02-01] MEDS ORDERED: HYDROmorphone 1 MG/ML 1 ML SYRINGE IVP STA (21:55)
--- NOTE | 2021-02-01 21:56 | ED ---
Fever HPI - General Chief Complaint: Fever Stated Complaint: Fever Time Seen by Provider: 02/01/21 21:25 Source: patient, family, RN notes reviewed, old records reviewed Mode of arrival: ambulatory Limitations: no limitations - History of Present Illness Initial Comments: 55-year-old male to the ER for evaluation. Patient presents with fever. Patient is managing drainage managing drainage from his back with at-home nurse. Has been off antibiotics in the outpatient setting. Patient developed fever today and shaking. Patient presents for fever. Patient denies any cough congestion shortness breath abdominal pain nausea vomiting or diarrhea. MD Complaint: fever -: hour(s) Temperature Source: subjective Context: recent procedure, recent antibiotic use Associated Symptoms: chills, rigors, myalgias Treatments Prior to Arrival: none - Related Data Home Medications Medication Instructions Recorded Confirmed Losartan Potassium 50 mg PO QAM 09/07/20 01/06/21 Gabapentin [Neurontin] 100 mg PO BID 01/06/21 01/06/21 Previous Rx's Medication Instructions Recorded HYDROcodone/APAP 5-325MG [[place] 5] 1 each PO Q6HR PRN #28 tab 09/15/20 Cyclobenzaprine [Flexeril] 10 mg PO TID PRN #90 tab 01/12/21 HYDROcodone/APAP 5-325MG [[place] 5] 1 each PO Q4HR PRN #42 tab 01/12/21 Allergies Allergy/AdvReac Type Severity Reaction Status Date / Time blood pressure medication AdvReac Cough Uncoded 02/01/21 21:08 Review of Systems ROS Statement: Those systems with pertinent positive or pertinent negative responses have been documented in the HPI. ROS Other: All systems not noted in ROS Statement are negative. Past Medical History Past Medical History: Hypertension Additional Past Medical History / Comment(s): CHRONIC PAIN. CPAP MACHINE. History of Any Multi-Drug Resistant Organisms: None Reported Past Surgical History: Back Surgery, Orthopedic Surgery Additional Past Surgical History / Comment(s): ARTHRO RIGHT KNEE. BARIATRIC SLEEVE-10 years ago Past Anesthesia/Blood Transfusion Reactions: Postoperative Nausea & Vomiting (PONV) Additional Past Anesthesia/Blood Transfusion Reaction / Comment(s): HAD NAUSEA AND CHILKS AFTER HE WAS DISCHARGED FROM FLOOR FOR ABOUT 4 HOURS? Past Psychological History: No Psychological Hx Reported Smoking Status: Former smoker Past Alcohol Use History: Rare Past Drug Use History: None Reported - Past Family History Mother Family Medical History: Cancer Additional Family Medical History / Comment(s): pancreatic cancer Father Family Medical History: Cancer Additional Family Medical History / Comment(s): colon cancer General Exam Limitations: no limitations General appearance: alert, in no apparent distress Head exam: Present: atraumatic, normocephalic, normal inspection Eye exam: Present: normal appearance, PERRL, EOMI. Absent: scleral icterus, conjunctival injection, periorbital swelling ENT exam: Present: normal exam, mucous membranes moist Neck exam: Present: normal inspection. Absent: tenderness, meningismus, lymphadenopathy Respiratory exam: Present: normal lung sounds bilaterally. Absent: respiratory distress, wheezes, rales, rhonchi, stridor Cardiovascular Exam: Present: regular rate, normal rhythm, normal heart sounds. Absent: systolic murmur, diastolic murmur, rubs, gallop, clicks GI/Abdominal exam: Present: soft, normal bowel sounds. Absent: distended, tenderness, guarding, rebound, rigid Extremities exam: Present: normal inspection, full ROM, normal capillary refill. Absent: tenderness, pedal edema, joint swelling, calf tenderness Back exam: Present: normal inspection Neurological exam: Present: alert, oriented X3, CN II-XII intact Psychiatric exam: Present: normal affect, normal mood Skin exam: Present: warm, dry, intact, normal color. Absent: rash Course Vital Signs 02/01/21 02/02/21 21:06 00:00 Temperature 101.3 F H 98.9 F Pulse Rate 104 H Respiratory 19 Rate Blood Pressure 102/55 O2 Sat by Pulse 94 L Oximetry - Reevaluation(s) Reevaluation #1: 02/02/21 00:55 Medical record is reviewed Reevaluation #2: 02/02/21 00:56 Patient symptoms are improved here in the ER Reevaluation #3: 02/02/21 00:56 Patient family informed of results - Consultations Consultation #1: Spoke with Dr. Altman were agrees to admit the patient Medical Decision Making - Medical Decision Making 55 male to be admitted for fever. Patient was recently had spinal surgery. Has no other complaints no evidence of infection currently. Patient replacement antibiotics for postoperative fever - Lab Data Result diagrams: 02/01/21 22:01 02/01/21 22:01 Lab Results 02/01/21 02/01/2102/01/21 Range/Units 22:01 22:01 22:01 WBC 7.9 (3.8-10.6) k/uL RBC 5.10 (4.30-5.90) m/uL Hgb 15.2 (13.0-17.5) gm/dL Hct 45.4 (39.0-53.0) % MCV 89.1 (80.0-100.0) fL MCH 29.9 (25.0-35.0) pg MCHC 33.5 (31.0-37.0) g/dL RDW 12.1 (11.5-15.5) % Plt Count 307 (150-450) k/uL MPV 7.7 Neutrophils % 86 % Lymphocytes % 9 % Monocytes % 3 % Eosinophils % 1 % Basophils % 0 % Neutrophils # 6.8 (1.3-7.7) k/uL Lymphocytes # 0.7 L (1.0-4.8) k/uL Monocytes # 0.2 (0-1.0) k/uL Eosinophils # 0.1 (0-0.7) k/uL Basophils # 0.0 (0-0.2) k/uL PT (9.0-12.0) sec INR (<1.2) APTT (22.0-30.0) sec Sodium (137-145) mmol/L Potassium (3.5-5.1) mmol/L Chloride (98-107) mmol/L Carbon Dioxide (22-30) mmol/L Anion Gap mmol/L BUN (9-20) mg/dL Creatinine (0.66-1.25) mg/dL Est GFR (CKD-EPI)AfAm (>60 ml/min/1.73 sqM) Est GFR (CKD-EPI)NonAf (>60 ml/min/1.73 sqM) Glucose (74-99) mg/dL Plasma Lactic Acid Jeffery (0.7-2.0) mmol/L Calcium (8.4-10.2) mg/dL Magnesium (1.6-2.3) mg/dL Total Bilirubin (0.2-1.3) mg/dL AST (17-59) U/L ALT (4-49) U/L Alkaline Phosphatase (38-126) U/L Lactate Dehydrogenase (313-618) U/L Troponin I <0.012 (0.000-0.034) ng/mL C-Reactive Protein (<1.0) mg/dL NT-Pro-B Natriuret Pep 51 pg/mL Total Protein (6.3-8.2) g/dL Albumin (3.5-5.0) g/dL Coronavirus (PCR) (Not Detectd) 02/01/21 02/01/21 02/01/21 Range/Units 22:01 22:01 22:01 WBC (3.8-10.6) k/uL RBC (4.30-5.90) m/uL Hgb (13.0-17.5) gm/dL Hct (39.0-53.0) % MCV (80.0-100.0) fL MCH (25.0-35.0) pg MCHC (31.0-37.0) g/dL RDW (11.5-15.5) % Plt Count (150-450) k/uL MPV Neutrophils % % Lymphocytes % % Monocytes % % Eosinophils % % Basophils % % Neutrophils # (1.3-7.7) k/uL Lymphocytes # (1.0-4.8) k/uL Monocytes # (0-1.0) k/uL Eosinophils # (0-0.7) k/uL Basophils # (0-0.2) k/uL PT 10.1 (9.0-12.0) sec INR 0.9 (<1.2) APTT 18.8 L (22.0-30.0) sec Sodium 139 (137-145) mmol/L Potassium 4.1 (3.5-5.1) mmol/L Chloride 105 (98-107) mmol/L Carbon Dioxide 23 (22-30) mmol/L Anion Gap 11 mmol/L BUN 23 H (9-20) mg/dL Creatinine 1.11 (0.66-1.25) mg/dL Est GFR (CKD-EPI)AfAm 87 (>60 ml/min/1.73 sqM) Est GFR (CKD-EPI)NonAf 76 (>60 ml/min/1.73 sqM) Glucose 155 H (74-99) mg/dL Plasma Lactic Acid Jeffery 1.8 (0.7-2.0) mmol/L Calcium 9.9 (8.4-10.2) mg/dL Magnesium 2.1 (1.6-2.3) mg/dL Total Bilirubin 0.5 (0.2-1.3) mg/dL AST 19 (17-59) U/L ALT 18 (4-49) U/L Alkaline Phosphatase 79 (38-126) U/L Lactate Dehydrogenase 506 (313-618) U/L Troponin I (0.000-0.034) ng/mL C-Reactive Protein 6.2 H (<1.0) mg/dL NT-Pro-B Natriuret Pep pg/mL Total Protein 6.7 (6.3-8.2) g/dL Albumin 4.0 (3.5-5.0) g/dL Coronavirus (PCR) (Not Detectd) 02/01/21 Range/Units 22:02 WBC (3.8-10.6) k/uL RBC (4.30-5.90) m/uL Hgb (13.0-17.5) gm/dL Hct (39.0-53.0) % MCV (80.0-100.0) fL MCH (25.0-35.0) pg MCHC (31.0-37.0) g/dL RDW (11.5-15.5) % Plt Count (150-450) k/uL MPV Neutrophils % % Lymphocytes % % Monocytes % % Eosinophils % % Basophils % % Neutrophils # (1.3-7.7) k/uL Lymphocytes # (1.0-4.8) k/uL Monocytes # (0-1.0) k/uL Eosinophils # (0-0.7) k/uL Basophils # (0-0.2) k/uL PT (9.0-12.0) sec INR (<1.2) APTT (22.0-30.0) sec Sodium (137-145) mmol/L Potassium (3.5-5.1) mmol/L Chloride (98-107) mmol/L Carbon Dioxide (22-30) mmol/L Anion Gap mmol/L BUN (9-20) mg/dL Creatinine (0.66-1.25) mg/dL Est GFR (CKD-EPI)AfAm (>60 ml/min/1.73 sqM) Est GFR (CKD-EPI)NonAf (>60 ml/min/1.73 sqM) Glucose (74-99) mg/dL Plasma Lactic Acid Jeff[place] (0.7-2.0) mmol/L Calcium (8.4-10.2) mg/dL Magnesium (1.6-2.3) mg/dL Total Bilirubin (0.2-1.3) mg/dL AST (17-59) U/L ALT (4-49) U/L Alkaline Phosphatase (38-126) U/L Lactate Dehydrogenase (313-618) U/L Troponin I (0.000-0.034) ng/mL C-Reactive Protein (<1.0) mg/dL NT-Pro-B Natriuret Pep pg/mL Total Protein (6.3-8.2) g/dL Albumin (3.5-5.0) g/dL Coronavirus (PCR) Not Detected (Not Detectd) - EKG Data -: EKG Interpreted by Me (EKG is sinus rhythm 97. 160 QRS 112 QTC 420) - Radiology Data Radiology results: report reviewed (Chest x-rays negative for acute disease, CT lumbar spine is pending), image reviewed Disposition Clinical Impression: Postoperative fever Disposition: ADMITTED IP TO THIS HOSP Condition: Good Is patient prescribed a controlled substance at d/c from ED?: No Referrals: Matthias Urias MD [Primary Care Provider] - 1-2 days
--- NOTE | 2021-02-01 22:19 | XR ---
EXAMINATION TYPE: XR chest 1V portable DATE OF EXAM: 02/01/2021 COMPARISON: NONE HISTORY: Fever. Back surgery. TECHNIQUE: Single view FINDINGS: Heart and mediastinum are normal. There is mild linear density left lung base. The other cheikh ng payton are clear. There are no hilar masses. Bony thorax is intact. IMPRESSION: There is some minimal subsegmental atelectasis left lung base compared to last exam. Norm al heart.
[2021-02-01 22:53] LABS: Basophils % (A) 0 %; Eosinophils # (A) 0.1 k/uL (0-0.7); Eosinophils % (A) 1 %; HCT 45.4 % (39.0-53.0); HGB 15.2 gm/dL (13.0-17.5); Lymphocytes # (A) 0.7 k/uL (1.0-4.8); Lymphocytes % (A) 9 %; MCH 29.9 pg (25.0-35.0); MCHC 33.5 g/dL (31.0-37.0); MCV 89.1 fL (80.0-100.0); Mean Platelet Volume 7.7; Monocytes # (A) 0.2 k/uL (0-1.0); Monocytes % (A) 3 %; Neutrophils # (A) 6.8 k/uL (1.3-7.7); Neutrophils % (A) 86 %; Platelet Count 307 k/uL (150-450); RDW 12.1 % (11.5-15.5); WBC 7.9 k/uL (3.8-10.6)
[2021-02-01 23:08] LABS: C Reactive Protein 6.2 mg/dL (<1.0); Calcium 9.9 mg/dL (8.4-10.2); Magnesium 2.1 mg/dL (1.6-2.3); Potassium 4.1 mmol/L (3.5-5.1); Total Bilirubin 0.5 mg/dL (0.2-1.3); Total Protein 6.7 g/dL (6.3-8.2)
[2021-02-01 23:15] LABS: INR 0.9 (<1.2); Prothrombin Time 10.1 sec (9.0-12.0)
[2021-02-01 23:35] LABS: Partial Thromboplastin Time 18.8 sec (22.0-30.0)
[2021-02-02 00:42] VITALS: TEMP 98.9
[2021-02-02] MEDS ORDERED: HYDROmorphone 1 MG/ML 1 ML SYRINGE IVP PRN (00:43)
[2021-02-02] MEDS ORDERED: NALOXONE 0.4 MG/ML 1 ML VIAL IV PRN (00:43)
[2021-02-02] MEDS ORDERED: LORazepam 2 MG/ML INJ IV PRN (00:43)
[2021-02-02] MEDS ORDERED: ONDANSETRON 4 MG/2 ML VIAL IVP PRN (00:43)
[2021-02-02] MEDS ORDERED: VANCOMYCIN IV PER PHARMACY 1 EACH MISC MISCELLANE PRN (00:58)
[2021-02-02] MEDS ORDERED: VANCOMYCIN 2,000 MG in SODIUM CHLORIDE 0.9% 500 ML 500 ML IVPB ONE (01:15)
[2021-02-02 01:16] VITALS: BP 112/75; PULSE 93; RESP 18
--- NOTE | 2021-02-02 01:18 | CT ---
EXAMINATION TYPE: CT lumbar spine w con DATE OF EXAM: 02/02/2021 COMPARISON: None HISTORY: back surgery 01/11/21, pain & fever CT DLP: 2129.4 mGycm Automated exposure control for dose reduction was used. CONTRAST: Performed with IV Contrast, patient injected with 100 mL of Isovue 300. Images obtained from T12 to S3 vertebra without contrast. Lumbar vertebra have normal alignment. Disc spaces are fairly normal. There is disc prosthesis at L5- S1. There is posterior fusion surgery with screws and rods at L5-S1. There is left side laminectomy d efect of L5. The sacroiliac joints are intact. There is no lumbar paraspinal mass. There is posterior disc bulging and facet arthropathy with some mild spinal stenosis at L4-5. There is also some mild r elative spinal stenosis at L2-3. There is posterior disc herniation with calcification at L5-S1 and p robably some spinal stenosis but evaluation difficult due to metal artifact. There is no compression fracture. There is some fat stranding and fluid in the subcutaneous tissues over the posterior lower lumbar spine related to the recent surgery. IMPRESSION: Postsurgical changes. Subcutaneous fluid over the lower lumbar spine measures up to 2 cm in thickness on the left side and could relate to residual seroma or hematoma. No air bubbles seen to suggest an abscess. No compression fracture. Exam limited due to metal artifact at the L5-S1 level. There is bety e degree of spinal stenosis at several levels as above.
[2021-02-02] MEDS: SODIUM CHLORIDE 0.9% 1,000 ML IV SCH ×2 (06:44→09:43)
[2021-02-02] MEDS ORDERED: HYDROcodone/APAP 5-325MG 1 EACH TAB PO PRN (10:17)
[2021-02-02] MEDS ORDERED: CYCLOBENZAPRINE 10 MG TAB PO PRN (10:17)
--- NOTE | 2021-02-02 10:17 | P.DS ---
Providers Date of admission: 02/02/21 00:43 Attending physician: Ramin Altman Primary care physician: Matthias Urias MD Hospital Course: Patient is seen and examined today in the emergency room where he has remained on holding for observation overnight. He is well known to our service. He is a 55-year-old gentleman who had undergone lumbar decompression and fusion on 01/11/21. He had initially been making good progress however he has had some sustained small drainage from his wound site on the left. This has been managed outpatient with oral antibiotics and had been making good improvement. However last night he developed fever and chills and presented to the emergency room. His found have a vertebral bone 101.3. He's remained afebrile since. He says he feels significantly better than last night. He does not note any exposure or any other illness. He denies any chest pain service breath. He was not having any changes in his lower back or his wound sites. He is not having increased drainage or any increasing erythema around his surgical area. He is feeling very get this morning and was hoping to go home this morning. Physical Exam Currently afebrile The incision site is clean dry and intact. There is no erythema no drainage. There is been a damage on her since yesterday and there is no active drainage at this site. There is no erythema. There is no fluid collection There is no purulence no evidence of infection. Abdomen soft and nontender. Chest has good excursion with deep inspiration and expiration. The patient has active and passive range of motion intact at the upper and lower extremities. There is no acute change in neurologic status. he has good strength in his lower extremities. He has sustained dorsal flexion plantarflexion and EHL intact. Hospital Course The patient is remained afebrile today. He feels very good and is mobilizing well. He had a computed tomography scan of his lumbar spine which shows the hardware intact in good alignment and good position. There is no evidence of abscess or air at the deep site. There may be some small seroma superficially. I do not think that he has active infection at the deep space. He does not appear septic and is making appropriate progress. I think he needs to stay on oral antibiotics for now with close follow-up. I do not have plans for surgery at this point however we will need to follow them closely to make sure this continues to heal an appropriate trajectory. The patient has progressed appropriately. I think they are in good stable condition for discharge today. They will be sent home with appropriate prescriptions and continued prophylactic antibiotics with close follow-up in the next couple of days. I answered their questions to the best of my ability in a language that they can understand and they are agreeable with the plan. They will follow up as directed. Patient Condition at Discharge: Good Plan - Discharge Summary New Discharge Prescriptions: New Cephalexin [Keflex] 500 mg PO Q6HR 1 Days #28 cap No Action Losartan Potassium 50 mg PO QAM Cyclobenzaprine [Flexeril] 10 mg PO TID PRN #90 tab PRN Reason: Spasms Gabapentin 300 mg PO TID HYDROcodone/APAP 5-325MG [Orange 5] 1 tab PO Q6HR PRN PRN Reason: Pain Multivitamins, Thera [Multivitamin (formulary)] 1 tab PO DAILY Discharge Medication List Losartan Potassium 50 mg PO QAM 09/07/20 [History] Cyclobenzaprine [Flexeril] 10 mg PO TID PRN #90 tab 01/12/21 [Rx] Cephalexin [Keflex] 500 mg PO Q6HR 1 Days #28 cap 02/02/21 [Rx] Gabapentin 300 mg PO TID 02/02/21 [History] HYDROcodone/APAP 5-325MG [Orange 5] 1 tab PO Q6HR PRN 02/02/21 [History] Multivitamins, Thera [Multivitamin (formulary)] 1 tab PO DAILY 02/02/21 [Histo ry] Follow up Appointment(s)/Referral(s): Matthias Urias MD [Primary Care Provider] - 1-2 days Ramin Altman DO [Doctor of Osteopathic Medicine] - 02/07/21 Activity/Diet/Wound Care/Special Instructions: May ambulate as tolerated. Change dressing as needed. May shower with area uncovered. Do not soak in a tub. Avoid repetitive bending twisting or lifting. Discharge Disposition: HOME SELF-CARE
[2021-02-02] MEDS ORDERED: VANCOMYCIN 2,000 MG in SODIUM CHLORIDE 0.9% 500 ML 500 ML IVPB SCH (13:00)
[2021-02-02] MEDS ORDERED: GABAPENTIN 300 MG CAP PO SCH (16:00)
[2021-02-03] MEDS ORDERED: LOSARTAN 50 MG TAB PO SCH (09:00)
[2021-02-03] MEDS ORDERED: MULTIVITAMINS, THERA 1 EACH TAB PO SCH (09:00)
== END 2021-02-02 11:04 | disposition home or self-care (01) ==
LOC: EC 21:01 → 6NMEDSUR 02-02 00:43
PROVIDERS: ADMIT Orthopaedic Surgery Orthopaedic Surgery of the Spine; ATTEND Orthopaedic Surgery Orthopaedic Surgery of the Spine
DX: R50.82 Postprocedural fever (principal); M51.26 Other intervertebral disc displacement, lumbar region; M48.061 Spinal stenosis, lumbar region without neurogenic claudication; M46.96 Unspecified inflammatory spondylopathy, lumbar region; I10 Essential (primary) hypertension; J98.11 Atelectasis; Z20.822 Contact with and (suspected) exposure to COVID-19; Z79.899 Other long term (current) drug therapy; Z88.8 Allergy status to other drugs, medicaments and biological substances; Z87.891 Personal history of nicotine dependence; Z80.42 Family history of malignant neoplasm of prostate; Z80.0 Family history of malignant neoplasm of digestive organs
CPT/HCPCS: 99285; 96361 ×2; 96375; 96365; 96367; 36415; 93005; 83880; 80053; 85652; 83605; 83615; 83735; 84484; 85025; 85610; 85730; 86140 ×2; 87040; 84145; 87635; 71045; 72132; G0378; J3370; J3360; J0696; J1170; J1885; Q9967

== ENCOUNTER → 2024-03-11 | Outpatient (CLI) | payer BC ==
[2024-03-11 12:31] LABS: INR 0.9 (<1.2); Partial Thromboplastin Time 22.9 sec (22.0-30.0); Prothrombin Time 10.4 sec (10.0-12.5)
--- NOTE | 2024-03-11 13:55 | XR ---
EXAMINATION TYPE: XR chest 2V DATE OF EXAM: 03/11/2024 11:56 AM COMPARISON: 02/01/2021 CLINICAL INDICATION: Male, 58 years old with history of Z01.818 PRE SURGICAL FOR LUMBAR FUSION, LABS/ CHEST XRAY, , TECHNIQUE: Frontal and lateral views FINDINGS: Heart upper limits of normal in size. The aorta and pulmonary vasculature are within normal limits. H azy lower lung densities related to overlying soft tissues. Otherwise, lungs and pleural spaces are c lear. IMPRESSION: No acute cardiopulmonary process. [facility], , 03/11/2024 1:53 PM
[2024-03-11 16:00] LABS: Basophils # (A) 0.03 X 10*3/uL (0.00-0.10); Basophils % (A) 0.5 %; Eosinophils % (A) 1.7 %; HCT 44.7 % (39.6-50.0); HGB 14.9 g/dL (13.0-17.0); Lymphocytes # (A) 1.62 X 10*3/uL (0.90-5.00); MCH 29.9 pg (27.0-32.0); MCHC 33.3 g/dL (32.0-37.0); MCV 89.6 FL (80.0-97.0); Mean Platelet Volume 9.9 FL (9.5-12.2); Monocytes # (A) 0.28 X 10*3/uL (0.20-1.00); Monocytes % (A) 4.7 %; NRBC Per 100 WBC 0 X 10*3/uL (0.00-0.01); Neutrophils # (A) 3.96 X 10*3/uL (1.80-7.70); Neutrophils % (A) 65.8 %; Platelet Count 231 X 10*3/uL (140-440); RBC 4.99 X 10*6/uL (4.40-5.60); RDW 11.9 % (11.5-14.5); WBC 6.01 X 10*3/uL (4.50-10.00)
[2024-03-11 16:15] LABS: BUN/Creat Ratio 17.56 Ratio (12.00-20.00); Blood Urea Nitrogen 15.8 mg/dL (9.0-27.0); Calcium 9.4 mg/dL (8.7-10.3); Chloride 111 mmol/L (96-109); Glucose 190 mg/dL (70-110); Potassium 3.6 mmol/L (3.5-5.5); Sodium 142 mmol/L (135-145)
[2024-03-11 19:06] LABS: Appearance,Urine Clear (Clear); Bilirubin,Urine Negative (Negative); Blood,Urine Negative (Negative); Color,Urine Yellow (Yellow); Ketones,Urine Negative (Negative); Nitrite,Urine Negative (Negative); PH, Urine 5.5; Specific Gravity,Urine 1.014 (1.001-1.030); Urobilinogen,Urine 0.2 E.U./DL
== END | disposition home or self-care (01) ==
LOC: LABPAT 11:21
PROVIDERS: ATTEND Orthopaedic Surgery Orthopaedic Surgery of the Spine
DX: Z01.818 Encounter for other preprocedural examination (principal); M51.27 Other intervertebral disc displacement, lumbosacral region; M48.07 Spinal stenosis, lumbosacral region; Z22.322 Carrier or suspected carrier of Methicillin resistant Staphylococcus aureus
CPT/HCPCS: 36415; 71046; 80048; 81003; 85025; 85610; 85730; 86850; 86900; 86901; 87070

== ENCOUNTER 2024-03-18 05:39 | Observation (INO) | payer BC ==
[~2024-03-18 05:39] MED LIST changes: -ceFAZolin 3 GM in SODIUM CHLORIDE 0.9% 100 ML IVPB PRN
[2024-03-18] MEDS ORDERED: fentaNYL (PF) 50 MCG/ML 2 ML AMP IVP PRN (05:43)
[2024-03-18] MEDS ORDERED: HYDROmorphone 0.5 MG/0.5 ML SYRINGE IVP PRN (05:43)
[2024-03-18] MEDS: LIDOCAINE 1% (10MG/ML) FOR IV START INTRADERMA PRN (06:45)
[2024-03-18] MEDS: LACTATED RINGERS 1,000 ML IV SCH (06:45)
[2024-03-18] MEDS: IV FLUID CONTINUATION 1,000 ML IV ONE ×2 (06:45→07:00)
[2024-03-18] MEDS: ONDANSETRON 4 MG/2 ML VIAL IVP ONE (06:59)
[2024-03-18] MEDS: MIDAZOLAM 2 MG/2 ML VIAL IV PRN (06:59)
[2024-03-18] MEDS ORDERED: PROPOFOL 10 MG/ML 20 ML VIAL IV ONE (07:23)
[2024-03-18] MEDS ORDERED: LIDOCAINE 1% INJ 10MG/ML (20 ML MDV) ONE (07:23)
[2024-03-18] MEDS ORDERED: HYDROmorphone (PF) 1 MG/ML ONE (07:23)
[2024-03-18] MEDS ORDERED: GLYCOPYRROLATE 0.2 MG/ML 2 ML VIAL ONE (07:23)
[2024-03-18] MEDS ORDERED: NEOSTIGMINE 1 MG/ML 10 ML VIAL ONE (07:23)
[2024-03-18] MEDS ORDERED: ROCURONIUM 10 MG/ML (5 ML VIAL) IV ONE (07:23)
[2024-03-18] MEDS ORDERED: SUCCINYLCHOLINE CHLORIDE 200 MG/10 ML VIAL IV ONE (07:23)
[2024-03-18] MEDS ORDERED: fentaNYL (PF) 50 MCG/ML 2 ML AMP ONE (07:23)
[2024-03-18] MEDS ORDERED: KETAMINE HCL IN 0.9 % NACL 50 MG/5 ML SYRINGE ONE (07:23)
[2024-03-18] MEDS ORDERED: TRANEXAMIC 1,000 MG/100ML-NACL PREMIX BAG ONE (07:23)
[2024-03-18] MEDS ORDERED: PHENYLEPHRINE 10 MG/ML VIAL ONE (07:23)
[2024-03-18] MEDS ORDERED: MIDAZOLAM 2 MG/2 ML VIAL ONE (07:23)
[2024-03-18] MEDS: THROMBIN (BOVINE) 5,000 UNIT VIAL TOPICAL ONE (07:28)
[2024-03-18] MEDS: ceFAZolin 3 GM in SODIUM CHLORIDE 0.9% 100 ML IVPB PRN (07:28)
[2024-03-18] MEDS: ceFAZolin 1,000 MG in SODIUM CHLORIDE 0.9% IRRIGATIO 1,000 ML IRRIGATION PRN (07:28)
[2024-03-18] MEDS: LIDOCAINE 2%-EPI 1:100,000 20 ML VIAL SQ ONE ×2 (08:01)
[2024-03-18] MEDS: BUPIVACAINE (PF) 0.25% 30 ML VIAL SQ ONE ×2 (08:01)
[2024-03-18] MEDS: LACTATED RINGERS 1,000 ML IV ONE (09:55)
[2024-03-18] MEDS ORDERED: BENZOCAINE/MENTHOL LOZENG 1 EACH LOZENGE MUCOUS MEM PRN (10:47)
[2024-03-18] MEDS ORDERED: diazePAM 5 MG TAB PO PRN (10:47)
[2024-03-18] MEDS ORDERED: SENNOSIDES-DOCUSATE SODIUM 1 EACH TAB PO PRN (10:48)
[2024-03-18] MEDS ORDERED: ONDANSETRON 4 MG/2 ML VIAL IVP PRN (10:48)
--- NOTE | 2024-03-18 10:57 | P.OP ---
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, history of prior decompression and fusion L5- S1, lower extreme radiculopathy, lower extremity weakness Postoperative Diagnosis: Same Procedure: Removal of hardware L5-S1 and evaluation of fusion L5-S1 with findings of solid fusion laminectomy and decompression Computer CT navigation aided Minimally invasive Posterior lateral decompression and facet fusion L4-5 Minimally invasive Transforaminal lumbar interbody fusion for a 360 fusion L4-5 Discectomy for decompression L4-5 Placement of interbody graft L4-5 Use of computer navigation for fusion Local autogenous bone grafting Aspiration of bone marrow from the vertebral body pedicle L4 on the right Use of bone graft extenders Surgeon: Dr. Altman Digital Sales Manager: Asim SALDANA who is present throughout the entire the case persistence during positioning, dissection, exposure, visualization, and all crucial elements of the case as well as closure. Anesthesia: General anesthesia Estimated blood loss: Approximately 150 mL Complications: None apparent Components implanted: I removed the dawn at L5-S1 bilaterally from the pedicle screws and used new rods from L4-S1 for the final construct, K2M minimally invasive [place] pedicle screw system withscrews measuring 6.5 mm in diameter to rods one [place] interbody cage with 10 mL of osteo amp bio4 bone graft substitute and 30 mL of the BX bone fibers to supplement the local autogenous bone graft and bone marrow aspirate Disposition: To recovery room in good stable condition. OPERATIVE INDICATIONS The patient has had severe issues at their lower extremity in her lower back over the past couple of years with significant worsening over the past several months. Couple years ago the patient had significant problems at his lower extremities and was found to have severe stenosis at L5-S1 correlated well with those symptoms. He underwent decompression but ultimately had progressive degeneration at L5-S1 and underwent revision decompression with fusion at that level. He did well with this postoperatively and was making progress. However he has been developing new symptoms at his back and now toward his left lower extremity over a different distribution which correlated with the L4-5 level. Over the past few months the patient had worsening pain at their back and their lower extremities. The patient is having severe radicular symptoms at their lower extremity with weakness. The patient is having significant pain in their back. They are unable to obtain any comfort. His symptoms correlated well with his adjacent level degeneration at L4-5. We felt that L5-S1 level was stable. We did aggressive conservative treatment with medications therapy and interventional pain management however thery were not having any relief. The patient also showed evidence of a listhesis with some dynamic instability. The patient has been through conservative treatment. We discussed various treatment options including surgery, and the patient wishes to proceed with surgery We discussed the risk, patient's alternatives and benefits of surgery including but not limited to, risk of bleeding risk of infection, risk of need for further surgery, risk of decreased, loss of motion, muscle function, malunion nonunion, hardware failure, nerve damage, paralysis, heart attack, blindness and . They understood issues with the current pandemic and the possibility of exposure. OPERATIVE SUMMARY After discussing all the risks, patient alternatives and benefits at length, the patient elected to proceed with surgical intervention, signed informed consent, and presented for their procedure. The patient was seen and examined in the preoperative holding area and the surgical site was marked. The patient was given antibiotics and brought to the operating room. The patient was sedated and intubated by anesthesia in standard fashion. The patient was positioned on to the operating room table in a prone position on the appropriate frame which was well-padded and well molded. We were careful to pad any bony prominences and pressure points. We were careful to maintain the patient's cervical spine and good neutral alignment and position throughout. The patient was prepped and draped in a normal standard fashion. An appropriate timeout and keystone protocol performed. We were able to proceed with the surgery. The local wound area was infiltrated with local anesthetic. Over the right iliac crest I was able to make small stab incisions and establish a guidepin screw fixation to the iliac crest 2. I was able place the computer referencing device over the guidepins to establish an appropriate reference point for the Ziem CT navigation. We then were able to place patient in an appropriate drape and do a navigation spin for visualization and 3-D reconstruction of the lumbar spine. I was able utilize C-arm guidance and rui gation to establish appropriate position over the pedicles bilaterally at the appropriate levels . With the appropriate levels confirmed was able to make small incisions over the appropriate pedicle sites bilaterally. Utilizing the computer navigation device I was able to establish bony landmarks at the right iliac crest for a bony reference point for the navigation device. I was able to establish a Jamshidi needle over the lateral aspect of the pedicle and advanced the trocar into the pedicle being careful not to breech superiorly inferiorly medially or laterally using computer navigation device. Position was confirmed regularly with AP and lateral images on C-arm and with the computer navigation device at the appropriate levels bilaterally with new screws at L4. I was able to establish the trocar into the pedicle appropriately into the posterior aspect of the vertebral body bilaterally at the appropriate levels. This was done at each of the pedicle positions and each of the vertebrae. At the superior vertebrae of L4 I was able to take approximately 15 mL of bone aspiration for use later in the case to supplement the allograft and autograft bone. I was able place the guidewire into the trocar and into the vertebral body appropriately under C-arm guidance. Dissection was taken down over the wire to the appropriate starting position for the screw placed. The appropriate length screw was chosen, threaded over the guidewire and screwed appropriately into the pedicle and vertebral body under C-arm guidance in excellent alignment and position with good bony purchase. I was able to expose the prior hardware at L5 and S1 bilaterally. At L5 and S1 I exposed the Screws and I was able to remove the hardware of the Screws at L5 5 and S1 bilaterally and remove the rods from L5 and S1 bilaterally. I was able to evaluate the screws and check the screws and each of the screws at L5 and S1 bilaterally had good purchase without any evidence of loosening or fatigue or fracture. I felt that we could continue to use the screws in tact for the structure to extend the fusion to L4 bilaterally. With the screws intact I extended the incision to connect the screw hole sites on the most symptomatic side on the left. I dissected down to establish access over the pars and lamina to the base of the spinous process. I was able to expose the facet joint. The capsule the facet was taken down and showed some facet arthrosis at the joint. I was able to use a combination of curettes and Kerrison rongeurs and a high-speed drill to take down the facet joint and do a facetectomy. I was able get excellent foraminal decompression and central decompression with undermining across midline to perform a laminectomy centrally and contralaterally. I was able get good central decompression. The ligamentum flavum was taken down to further decompress centrally and at bilateral neural foramen. I was able to expose the disc space and visualize the traversing nerve root. Note was made of significant disc herniation that was abutting the traversing nerve root at the level causing further compression of the nerve root. I was able to establish a annulotomy at the appropriate level protecting soft tissue and neural structures. Note was made of some disc desiccation at the disc. I performed a complete discectomy with accommodation of curettes and rasps and scrapers. I was able get good endplate preparation at the disc space. I sized for the appropriate size interbody spacer protecting the soft tissue and neural structures. The wound was copiously irrigated and suctioned dry. There is no evidence of any dural tear or leak. I was able to pack the disc space with local autogenous bone graft as well as a small amount of bone graft which was also placed into the interbody cage itself. Protecting the soft tissue structures and neural structures I was able place the interbody cage in good alignment and good position with good fit and fill at the interbody space. Position was confirmed with C-arm guidance. Good hemostasis maintained. There is no evidence of any dural tear or leak. The wound was irrigated and suctioned dry. With the hardware intact, intraoperative C-arm imaging was again taken which showed good alignment and position of the hardware at the appropriate levels at L4-L5 and S1 bilaterally. We were then able to measure, contour and place the rods and appropriate hardware bilaterally. I was able to place capcrews, tighten them down, and torque them with the torque screwdriver appropriately. With this intact I was able to place the local autogenous bone graft with additional bone graft enhancer as necessary into the posterior lateral gutters over the decorticated transverse processes and facet joints on the contralateral side. The remainder of the bone graft was placed over the facet joint on the contralateral side after taking down the facet joint capsule. With the bone graft intact, a stable construct, and good decompression at the appropriate levels, we were able to proceed with closure. Good hemostasis was maintained. There is no evidence of dural tear or leak. The fascia was closed for a watertight closure. he subcuticular tissue was closed with absorbable suture. The wound was cleaned and dried and dressed with the appropriate dressing. The drapes were broken down. The patient was gently rolled back onto their hospital bed being careful to maintain their cervical spine and good neutral alignment and position. They were woken up by anesthesia, extubated, and brought to the recovery room in good stable condition. The patient will be admitted to the hospital for appropriate postoperative care, medical management and monitoring. We will continue to follow them closely about the postoperative course.
[2024-03-18] MEDS: DEXAMETHASONE SOD PHOSPHATE 4 MG/ML 1 ML VIAL IV ONE (13:14)
[2024-03-18] MEDS: HYDROmorphone 0.5 MG/0.5 ML SYRINGE IVP PRN (13:20)
--- NOTE | 2024-03-18 14:24 | FL ---
EXAMINATION TYPE: FL guidance operating room, XR lumbar spine 2 or 3V DATE OF EXAM: 03/18/2024 10:29 AM COMPARISON: Pre Operative Images if available both CT/MRI or plain film CLINICAL INDICATION: Male, 58 years old with history of L4-5 Fusion; TECHNIQUE: FL guidance operating room, XR lumbar spine 2 or 3V, multiple fluoroscopic images provided for procedure. Total fluoroscopy time: 20 seconds Total submitted images to PACS: 5 DAP: 480.95 mGym2 Gycm2 uGym2 cGycm2 or equivalent. FINDINGS: Fluoroscopic images during internal fixation/arthroplasty demonstrate hardware in appropriate positio n. Hardware appears intact. No immediate complication identified. IMPRESSION: 1. Report was generated for administrative purposes only. 2. Please see the operative/procedural note for further details. [facility], , 03/18/2024 2:22 PM
[2024-03-18] MEDS: ceFAZolin 3 GM in SODIUM CHLORIDE 0.9% 100 ML IVPB SCH (15:26)
[2024-03-18] MEDS: HYDROmorphone 1 MG/ML 1 ML SYRINGE IVP PRN (17:21)
[2024-03-18] MEDS: HYDROcodone/APAP 5-325MG 1 EACH TAB PO PRN (20:15)
[2024-03-18] MEDS: SODIUM CHLORIDE 0.9% 1,000 ML IV SCH (20:26)
[2024-03-18] MEDS: CYCLOBENZAPRINE 10 MG TAB PO PRN (20:29)
--- NOTE | 2024-03-18 20:29 | P.CONS ---
History of Present Illness - Reason for Consult Consult date: 03/18/24 Medical management - Chief Complaint L5-S1 lumbar fusion surgery - History of Present Illness Patient is a 58-year-old male with a known history of hypertension, osteoarthritis, obstructive sleep apnea on CPAP at home, chronic pain, prior history of bariatric surgery/gastric sleeve and prior history of smoking. Patient was admitted to hospital for elective lumbar spinal fusion surgery L5- S1. Patient was found to have spinal stenosis L4-L5, herniated nucleus pulposus L4-L5, adjacent level degeneration, history of prior decompression and fusion L5-S1, lower extremity radiculopathy and lower extremity weakness. Patient is status post surgery. Tolerated very well. Patient states that he is able to move his left leg better after surgery. Denied any numbness or tingling sensation. No bowel or bladder incontinence. Denied any nausea or vomiting. No fever no chills. No cough or purulent breath. No chest pain or shortness of breath. Laboratory data is not available at this time. Postoperatively blood pressure 95/60 pulse 96 respiration 18 pulse ox 88% on room air. Review of Systems Constitutional: Patient denies any fever or chills . No generalized weakness or weight loss. Abdomen: Patient denied nausea vomiting and diarrhea and abdominal pain. Cardiovascular: Patient denies any chest pain or short of breath no palpitations. Respiratory: patient denied any cough or sputum production. No shortness of breath Neurologic: Patient denied any numbness or tingling. no headache. Musculoskeletal: Patient denies any complaints of joint swelling or deformity. Skin: Negative Psychiatric: Negative Endocrine: No heat or cold intolerance. No recent weight gain. Genitourinary: No dysuria or hematuria. All other 14 point ROS negative except the above Past Medical History Past Medical History: GERD/Reflux, Hypertension, Osteoarthritis (OA), Sleep Apnea/CPAP/BIPAP Additional Past Medical History / Comment(s): CHRONIC PAIN. USES CPAP MACHINE. History of Any Multi-Drug Resistant Organisms: None Reported Past Surgical History: Back Surgery, Bariatric Surgery, Orthopedic Surgery Additional Past Surgical History / Comment(s): RIGHT KNEE ARTHROSCOPY, GASTRIC SLEEVE-10 years ago, sleep apnea surgery(failed). Past Anesthesia/Blood Transfusion Reactions: Motion Sickness, Postoperative Nausea & Vomiting (PONV) Additional Past Anesthesia/Blood Transfusion Reaction / Comm: Rare motion sickness. Past Psychological History: No Psychological Hx Reported Smoking Status: Former smoker Past Alcohol Use History: Occasional Additional Past Alcohol Use History / Comment(s): QUIT SMOKING 20+ YRS AGO, SMOKED 1 PPD. Past Drug Use History: None Reported - Past Family History Mother Family Medical History: Cancer Additional Family Medical History / Comment(s): Pancreatic cancer. Father Family Medical History: Cancer Additional Family Medical History / Comment(s): Colon cancer. Medications and Allergies Home Medications Medication Instructions Recorded Confirmed Type Acetaminophen Tab [Tylenol Tab] 500 - 1,000 mg PO Q4-6H PRN 03/10/24 03/10/24 History Losartan Potassium 100 mg PO QAM 03/10/24 03/10/24 History amLODIPine BESYLATE 2.5 mg PO QAM 03/10/24 03/10/24 History Allergies Allergy/AdvReac Type Severity Reaction Status Date / Time blood pressure medication AdvReac Cough Uncoded 03/10/24 14:48 Physical Exam Vitals: Vital Signs Temp Pulse Pulse Pulse Resp BP BP 03/18/24 13:10 98.2 F 92 18 110/72 03/18/24 12:30 93 14 124/57 03/18/24 12:00 91 14 114/52 03/18/24 11:45 88 18 116/60 03/18/24 11:30 93 18 109/52 03/18/24 11:15 93 18 102/58 03/18/24 11:00 81 12 116/55 03/18/24 10:52 97.5 F L 90 12 103/53 03/18/24 07:10 87 16 130/68 03/18/24 06:15 98.5 F 78 16 157/89 Pulse Ox 03/18/24 13:10 92 L 03/18/24 12:30 93 L 03/18/24 12:00 99 03/18/24 11:45 97 03/18/24 11:30 97 03/18/24 11:15 97 03/18/24 11:00 99 03/18/24 10:52 99 03/18/24 07:10 96 03/18/24 06:15 97 Intake and Output 03/17/24 03/18/24 03/18/24 22:59 06:59 14:59 Intake Total 100 2401 Output Total 275 Balance 100 2126 Intake: IV 100 2401 Output: Urine 125 Estimated Blood Loss 150 Other: Weight 143.2 kg 143.2 kg PHYSICAL EXAMINATION: Patient is lying in the bed comfortably, no acute distress, awake alert and oriented.. HEENT: Normocephalic. Neck is supple. Pupils reactive. Nostrils clear. Oral cavity is moist. Neck reveals no JVD, carotid bruits, or thyromegaly. CHEST EXAMINATION: Trachea is central. Symmetrical expansion. Bibasilar diminished sounds otherwise lung payton clear to auscultation and percussion. CARDIAC: Normal S1, S2 with no gallops. No murmurs ABDOMEN: Soft. Bowel sounds normal. No organomegaly. No abdominal bruits. Extremities: reveal no edema. No clubbing or cyanosis Neurologically awake, alert, oriented x3 able to move all extremities. No gross o focal deficits noted Skin: No rash or skin lesions. Psychiatric: Coperative. Nonsuicidal Musculoskeletal: No joint swelling or deformity. Assessment and Plan Assessment: Patient is status post removal of hardware L5-S1 and evaluation of fusion L4 S1 with findings of solid fusion and laminectomy and decompression. Postoperative day 0 Postoperative hypotension. Improved now. Hypertension Obstructive sleep apnea on CPAP Chronic low back pain and prior history of L5-S1 fusion surgery History of bariatric surgery/gastric sleeve. Prior history of smoking Morbid obesity with BMI 45.3 GI and DVT prophylaxis as per primary team Plan: Patient will be continued on pain management, bowel regimen and encourage incentive spirometry. Continue to monitor blood pressure closely. Limit narcotic pain medication use. Patient is being currently on IV hydration with normal saline. Will start home blood pressure medications starting tomorrow as blood pressure tolerates. Ordered CBC and BMP for tomorrow. Continue to follow closely and further recommendations based on the clinical course. Thank you kindly for your consult.
[2024-03-19] MEDS: SENNOSIDES-DOCUSATE SODIUM 1 EACH TAB PO SCH (08:14)
[2024-03-19] MEDS: amLODIPine 2.5 MG TAB PO SCH (08:14)
[2024-03-19] MEDS: LOSARTAN 50 MG TAB PO SCH (08:14)
--- NOTE | 2024-03-19 08:50 | P.PN ---
Progress Note - Text Progress Note Date: 03/19/24 Orthopedic Spine History of present illness: Patient is a pleasant 58-year-old male who is seen and examined at the bedside following posterior lateral decompression and fusion performed yesterday. Patient states they are doing ok post operatively. Currently does not complain of nausea, vomiting, fever, or chills. Patient states pain has been adequately controlled. Patient is eating without difficulty. His Carrillo catheter remains intact. He has not been out of bed yet postoperatively. He feels his left lower extremity radiculopathy and weakness has significantly improved postoperatively. He is not complaining of any lower extremity weakness or radiculopathy. His pain is most significant at his lumbar spine. His pain is exacerbated with movements of his lumbar spine. He is being seen by medicine for postoperative medical management. Physical Exam Lumbar Fusion: Status post surgical day number 1 Patient is awake, alert, and oriented 3 Vital signs stable Good chest excursion with deep inspiration and expiration Dorsiflexion, plantarflexion, and extensor hallucis longus positive sustained bilaterally No signs or symptoms of DVT; no calf pain; pneumatic cuffs intact bilateral lower extremities Optifoam dressings are dry and intact over the lumbar spine and right iliac crest; no erythema, purulence, or signs of infection Neurovascularly intact bilaterally lower extremities Assessment: Status post L4-5 minimally invasive posterior lateral decompression and fusion with transforaminal lumbar interbody fusion with removal of hardware L5-S1 Low back pain Left lower extremity radiculopathy and weakness, improved postoperatively L4-5 herniated nucleus pulposus L4-5 adjacent level degenerative disc disease History of previous decompression and fusion L5-S1 L4-5 spinal stenosis Hypertension Obesity Plan: 1. Ambulate as tolerated; work with Physical Therapy to increase mobilization 2. Continue pain control with IV and oral medications; will plan to begin weaning the patient off of IV narcotic medication in anticipation for discharge home in the next 1-2 days 3. Dressings to remain intact with Optifoam; patient may shower with dressings intact 4. Carrillo catheter is intact. We will plan to discontinue Carrillo catheter hopefully today when patient is able to increase his mobilization. 5. Medical management can continue to manage patient for patient's other medical diagnoses 6. We will continue to follow the patient closely; depending on the patient's progress, we may plan for discharge home as early as tomorrow, 7. Patient can follow-up with Asim Smith PA-C or Dr. Renzo Altman at [facility] in 2-3 weeks following discharge The patient is seen and examined at bedside. I agree with the statements and the dictation above. Will discontinue the Carrillo catheter this morning. He is up out of bed in the chair with assistance this morning. Will continue to follow him closely as above.
[2024-03-19 09:02] LABS: Basophils # (A) 0.02 X 10*3/uL (0.00-0.10); Basophils % (A) 0.2 %; Eosinophils # (A) 0.04 X 10*3/uL (0.04-0.35); Eosinophils % (A) 0.4 %; HCT 43.6 % (39.6-50.0); HGB 14.5 g/dL (13.0-17.0); Lymphocytes # (A) 1.04 X 10*3/uL (0.90-5.00); Lymphocytes % (A) 10.6 %; MCH 30.7 pg (27.0-32.0); MCHC 33.3 g/dL (32.0-37.0); MCV 92.2 FL (80.0-97.0); Mean Platelet Volume 9.8 FL (9.5-12.2); Monocytes # (A) 0.69 X 10*3/uL (0.20-1.00); NRBC Per 100 WBC 0 X 10*3/uL (0.00-0.01); Neutrophils # (A) 7.98 X 10*3/uL (1.80-7.70); Neutrophils % (A) 81.4 %; Platelet Count 202 X 10*3/uL (140-440); RBC 4.73 X 10*6/uL (4.40-5.60); WBC 9.81 X 10*3/uL (4.50-10.00)
[2024-03-19 09:26] LABS: BUN/Creat Ratio 10.67 Ratio (12.00-20.00); Blood Urea Nitrogen 9.6 mg/dL (9.0-27.0); Calcium 8.8 mg/dL (8.7-10.3); Carbon Dioxide 26.7 mmol/L (21.6-31.8); Chloride 106 mmol/L (96-109); Glucose 145 mg/dL (70-110); Potassium 4.1 mmol/L (3.5-5.5); Sodium 143 mmol/L (135-145)
--- NOTE | 2024-03-19 13:33 | P.PN ---
Subjective Progress Note Date: 03/19/24 - Reason for Consult Consult date: 03/18/24 Medical management - Chief Complaint L5-S1 lumbar fusion surgery - History of Present Illness Patient is a 58-year-old male with a known history of hypertension, osteoar thritis, obstructive sleep apnea on CPAP at home, chronic pain, prior history of bariatric surgery/gastric sleeve and prior history of smoking. Patient was admitted to hospital for elective lumbar spinal fusion surgery L5- S1. Patient was found to have spinal stenosis L4-L5, herniated nucleus pulposus L4-L5, adjacent level degeneration, history of prior decompression and fusion L5-S1, lower extremity radiculopathy and lower extremity weakness. Patient is status post surgery. Tolerated very well. Patient states that he is able to move his left leg better after surgery. Denied any numbness or tingling sensation. No bowel or bladder incontinence. Denied any nausea or vomiting. No fever no chills. No cough or purulent breath. No chest pain or shortness of breath. Laboratory data is not available at this time. Postoperatively blood pressure 95/60 pulse 96 respiration 18 pulse ox 88% on room air. 03/19/2024 Patient is seen in follow-up today status post decompression and fusion yeste rday. Patient reports to feeling well although fatigued and continues with significant pain. Patient reports is passing gas but no bowel movement as of yet. Carrillo catheter is being discontinued today and patient due to void, monitor for any retention. Patient home blood pressures have been refused as he reports to feeling concerned about hypotension. Will monitor blood pressures and if becoming more elevated will discuss further with resuming. Patient is afebrile with no reports of chest pain or shortness of breath. Patient reports has been using incentive spirometer and encouraged to use at least 10 times every hour while awake. Patient instructed to get up out of the bed with restr ictions per orthopedics. Patient reports to tolerating diet with no reported nausea or vomiting. Review of systems: Constitutional: reports of fatigue, no fever, or chills Cardiovascular: No reports of chest pain or palpitations Respiratory: No reports of shortness of breath or cough GI: No reports of nausea, vomiting, or diarrhea, reports not much of an appetite : No reports of dysuria or retention Neurovascular: reports of generalized weakness and continued back pain All medications have been reviewed PHYSICAL EXAMINATION: Patient is sitting up in the bed comfortably, no acute distress, awake alert and oriented.. Well-developed, morbidly obese HEENT: Normocephalic. Neck is supple. Pupils reactive. Nostrils clear. Oral cavity is moist. Neck reveals no JVD, carotid bruits, or thyromegaly. CHEST EXAMINATION: Trachea is central. Symmetrical expansion. Bibasilar diminished sounds otherwise lung payton clear to auscultation and percussion. CARDIAC: Normal S1, S2 with no gallops. No murmurs ABDOMEN: Soft. Obese. Bowel sounds normal. No organomegaly. No abdominal bruits. Extremities: reveal no edema. No clubbing or cyanosis Neurologically awake, alert, oriented x3 able to move all extremities. No gross focal deficits noted Skin: No rash or skin lesions. Psychiatric: Cooperative. Non-suicidal Musculoskeletal: No joint swelling or deformity. Assessment: Patient is status post removal of hardware L5-S1 and evaluation of fusion L4 S1 with findings of solid fusion and laminectomy and decompression. Postoperative day 2 Postoperative hypotension. Improved now. Hypertension history Obstructive sleep apnea on CPAP Chronic low back pain and prior history of L5-S1 fusion surgery History of bariatric surgery/gastric sleeve. Prior history of smoking Morbid obesity with BMI 45.3 GI and DVT prophylaxis as per primary team Full code Plan: Patient will be continued on pain management, bowel regimen per orthopedics Encourage incentive spirometer use at least 10 times every hour while awake Continue to monitor blood pressure closely. Limit narcotic pain medication use. Patient is being currently on IV hydration with normal saline. Labs reviewed and within normal limits, creatinine is 0.9. If patient is eating and drinking will decrease the rate of hydration and/or discontinue. Will resume blood pressure medications if blood pressure continues to rise We will continue to follow with orthopedics during hospitalization. Thank you kindly for this consultation. The impression and plan of care has been dictated by Monse Sinclair, Nurse Practitioner as directed. Dr. Shaheen MD I have performed a history and examination and MDM of this patient, discussed the same with the dictator, and agree with the dictator's assessment and plan as written ,documented as a scribe. Based on total visit time, I have performed more than 50% of the visit. Objective - Vital Signs Vital signs: Vital Signs Temp 99.1 F 03/19/24 07:39 Pulse 102 H 03/19/24 07:39 Resp 18 03/19/24 07:39 BP 118/74 03/19/24 07:39 Pulse Ox 96 03/19/24 07:39 FiO2 Intake & Output 03/18/24 03/19/24 03/19/24 18:59 06:59 18:59 Intake Total 2801 Output Total 885 1800 Balance 1916 -1800 Weight 143.2 kg Intake: IV 2401 Intake, IV Titration 400 Amount Sodium Chloride 0.9% 1, 300 000 ml @ 75 mls/hr IV . [id number] [facility] Rx#:[id number] ceFAZolin 3 gm In Sodium 100 Chloride 0.9% 100 ml @ 200 mls/hr IVPB Q8H [facility] Rx#:[id number] Output: Urine 735 1800 Estimated Blood Loss 150 Other: Voiding Method Indwelling Catheter Indwelling Catheter - Labs CBC & Chem 7: 03/19/24 05:56 03/19/24 05:56 Labs: Abnormal Lab Results - Last 24 Hours (Table) 03/19/24 03/19/24 Range/Units 05:56 05:56 Neutrophils # 7.98 H (1.80-7.70) X 10*3/uL BUN/Creatinine Ratio 10.67 L (12.00-20.00) Ratio Glucose 145 H (70-110) mg/dL
[2024-03-20] MEDS ORDERED: MAGNESIUM HYDROXIDE 2,400 MG/30 ML CUP PO PRN (08:50)
--- NOTE | 2024-03-20 09:03 | P.PN ---
Progress Note - Text Progress Note Date: 03/20/24 Orthopedic Spine History of present illness: Patient is a pleasant 58-year-old male who is seen and examined at the bedside following posterior lateral decompression and fusion performed Saturday. Patient states they are doing ok post operatively. He has had some improvement as compared to yesterday. His Carrillo catheter has been discontinued. He is voiding independently without difficulty. He has been able to mobilize to the restroom. Currently does not complain of nausea, vomiting, fever, or chills. Patient states pain has been adequately controlled. Patient is eating without difficulty. He feels his left lower extremity radiculopathy and weakness has significantly improved postoperatively. He is not complaining of any lower extremity weakness or radiculopathy. His pain is most significant at his lumbar spine. His pain is exacerbated with movements of his lumbar spine. He continues to receive IV pain medication for pain control. Patient has not had a bowel movement postoperatively. He has not had a bowel movement since Saturday. He denies any abdominal pain. He is not passing gas. Prescription was signed yesterday for a walker for home use at the time of discharge. He is being seen by medicine for postoperative medical management. Physical Exam Lumbar Fusion: Status post surgical day number 2 Patient is awake, alert, and oriented 3 Vital signs stable Good chest excursion with deep inspiration and expiration Dorsiflexion, plantarflexion, and extensor hallucis longus positive sustained bilaterally No signs or symptoms of DVT; no calf pain; pneumatic cuffs intact bilateral lower extremities Optifoam dressings are dry and intact over the lumbar spine and right iliac crest; no erythema, purulence, or signs of infection Neurovascularly intact bilaterally lower extremities Assessment: Status post L4-5 minimally invasive posterior lateral decompression and fusion with transforaminal lumbar interbody fusion with removal of hardware L5-S1 Low back pain Left lower extremity radiculopathy and weakness, improved postoperatively L4-5 herniated nucleus pulposus L4-5 adjacent level degenerative disc disease History of previous decompression and fusion L5-S1 L4-5 spinal stenosis Hypertension Obesity Plan: 1. Ambulate as tolerated; work with Physical Therapy to increase mobilization 2. Continue pain control with IV and oral medications; will plan to begin weaning the patient off of IV narcotic medication in anticipation for discharge home tomorrow, 03/21/2024 MAPS has been reviewed today, 03/20/2024, with an Overall Overdose Risk Score of 380. An "Opiod Start Talking" Form has been signed and placed in the patient's chart. A prescription has been written for hydrocodone 5 mg / 325 mg, 1 tab, every 4 hours, as needed for acute pain, dispense #42, cyclobenzaprine 10 mg, 1 tab, 3 times daily, as needed for muscle spasm, dispense #60, and Senokot-S, 1 tab, twice daily, as needed for constipation, dispense #60. Prescriptions are sent to the patient's regular pharmacy per request of the patient. 3. Dressings to remain intact with Optifoam; patient may shower with dressings intact 4. He may continue to utilize a walker to aid in ambulation. Prescription was signed and provided to case management to obtain walker for home use at the time of discharge. 5. Medical management can continue to manage patient for patient's other medical diagnoses 6. We will continue to follow the patient closely; depending on the patient's progress, we may plan for discharge home as early as tomorrow, 03/21/2024 7. Patient can follow-up with Asim Smith PA-C or Dr. Renzo Altman at [facility] in 2-3 weeks following discharge
[2024-03-20] MEDS: polyethylene glycoL 3350 17 GM POWD.PACK PO SCH (11:05)
--- NOTE | 2024-03-21 07:07 | P.PN ---
Subjective Progress Note Date: 03/20/24 - Reason for Consult Consult date: 03/18/24 Medical management - Chief Complaint L5-S1 lumbar fusion surgery - History of Present Illness Patient is a 58-year-old male with a known history of hypertension, osteoar thritis, obstructive sleep apnea on CPAP at home, chronic pain, prior history of bariatric surgery/gastric sleeve and prior history of smoking. Patient was admitted to hospital for elective lumbar spinal fusion surgery L5- S1. Patient was found to have spinal stenosis L4-L5, herniated nucleus pulposus L4-L5, adjacent level degeneration, history of prior decompression and fusion L5-S1, lower extremity radiculopathy and lower extremity weakness. Patient is status post surgery. Tolerated very well. Patient states that he is able to move his left leg better after surgery. Denied any numbness or tingling sensation. No bowel or bladder incontinence. Denied any nausea or vomiting. No fever no chills. No cough or purulent breath. No chest pain or shortness of breath. Laboratory data is not available at this time. Postoperatively blood pressure 95/60 pulse 96 respiration 18 pulse ox 88% on room air. 03/19/2024 Patient is seen in follow-up today status post decompression and fusion yeste rday. Patient reports to feeling well although fatigued and continues with significant pain. Patient reports is passing gas but no bowel movement as of yet. Carrillo catheter is being discontinued today and patient due to void, monitor for any retention. Patient home blood pressures have been refused as he reports to feeling concerned about hypotension. Will monitor blood pressures and if becoming more elevated will discuss further with resuming. Patient is afebrile with no reports of chest pain or shortness of breath. Patient reports has been using incentive spirometer and encouraged to use at least 10 times every hour while awake. Patient instructed to get up out of the bed with restr ictions per orthopedics. Patient reports to tolerating diet with no reported nausea or vomiting. 03/20/2024 Patient is seen in follow-up today reports continued back pain and has not had a bowel movement as of yet. Patient does have as needed and scheduled bowel regimen on board. Patient reports significant pain when getting up and has been working with physical therapy. Working on pain management with orthopedics and will be monitored for improvements in pain. Patient is afebrile with no reports of chest pain or shortness of breath, oxygen saturations are above 92% on room air and patient reports has been using incentive spirometer. Encouraged increase activity as tolerated as well as continued I-S use at least 10 times every hour while awake. Patient is eating and drinking, although not much of an appetite with intermittent periods of nausea but no vomiting. Review of systems: Constitutional: reports of fatigue, no fever, or chills Cardiovascular: No reports of chest pain or palpitations Respiratory: No reports of shortness of breath or cough GI: reports of occasional nausea, no vomiting, or diarrhea, reports not much of an appetite, reports not passing much gas and has not had a bowel movement as of yet but does feel some abdominal cramping like he may have a bowel movement soon : No reports of dysuria or retention Neurovascular: reports of generalized weakness and continued back pain All medications have been reviewed PHYSICAL EXAMINATION: Patient is laying in the bed comfortably, no acute distress, awake alert and oriented.. Well-developed, morbidly obese HEENT: Normocephalic. Neck is supple. Pupils reactive. Nostrils clear. Oral cavity is moist. Neck reveals no JVD, carotid bruits, or thyromegaly. CHEST EXAMINATION: Trachea is central. Symmetrical expansion. Bibasilar diminished sounds otherwise lung payton clear to auscultation and percussion. CARDIAC: Normal S1, S2 with no gallops. No murmurs ABDOMEN: Soft. Morbidly obese. Bowel sounds normal. No organomegaly. No abdominal bruits. Extremities: reveal no edema. No clubbing or cyanosis Neurologically awake, alert, oriented x3 able to move all extremities. No gross focal deficits noted, diffusely weak Skin: No rash or skin lesions. Psychiatric: Cooperative. Non-suicidal Musculoskeletal: No joint swelling or deformity. Assessment: Patient is status post removal of hardware L5-S1 and evaluation of fusion L4 S1 with findings of solid fusion and laminectomy and decompression. Postoperative hypotension. Improved now. Hypertension history Obstructive sleep apnea on CPAP Chronic low back pain and prior history of L5-S1 fusion surgery History of bariatric surgery/gastric sleeve. Prior history of smoking Morbid obesity with BMI 45.3 GI and DVT prophylaxis as per primary team Full code Plan: Patient will be continued on pain management, bowel regimen per orthopedics. Have scheduled as well as as needed bowel regimen as patient reports is not passing much gas and has not had a bowel movement. Encourage incentive spirometer use at least 10 times every hour while awake Continue to monitor blood pressure closely. Limit narcotic pain medication use. Patient is eating and drinking with no reported vomiting and will discontinue IV fluids Blood pressure medications resumed, monitor for any hypotension We will continue to follow with orthopedics during hospitalization. Thank you kindly for this consultation. The impression and plan of care has been dictated by Monse Sinclair, Nurse Practitioner as directed. Dr. Cheryl MD I have performed a history and examination and MDM of this patient, discussed the same with the dictator, and agree with the dictator's assessment and plan as written ,documented as a scribe. Based on total visit time, I have performed more than 50% of the visit. Objective - Vital Signs Vital signs: Vital Signs Temp 98.7 F 03/21/24 01:17 Pulse 88 03/21/24 01:17 Resp 15 03/21/24 01:17 BP 118/72 03/21/24 01:17 Pulse Ox 98 03/21/24 01:17 FiO2 Intake & Output 03/20/24 03/21/24 03/21/24 18:59 06:59 18:59 Other: Voiding Method Toilet # Voids 1 2 - Labs CBC & Chem 7: 03/19/24 05:56 03/19/24 05:56
--- NOTE | 2024-03-21 10:46 | P.PN ---
Progress Note - Text Progress Note Date: 03/21/24 Postoperative day #3 Patient is seen and examined today at bedside. The patient has some pain around the surgical site as expected. Pain is being controlled with medication. He has been primarily using the IV medication and will start using the oral pain medication more regularly. He has been passing gas and he had a bowel movement yesterday. He denies any nausea or vomiting. Physical Exam Afebrile with stable vital signs Abdomen is soft nontender. Chest has good excursion deep and space expiration The incision site is clean dry and intact. No erythema there is no purulence. Extremities have not had neurologic change from prior to surgery. He has sustained dorsiflexion plantarflexion EHL intact Calves and thighs were soft nontender without evidence of DVT. Assessment/Plan Postoperative day #3 status post minimally invasive decompression fusion L4-5 with extension of his fusion from L5-S1 for his spinal stenosis discrimination and lower EXTR radiculopathy Patient is progressing as expected from the surgery. He is having difficulty changing positions and mobilizing but he is making slow progress We will continue to increase the patient's mobilization with therapy. We will continue pain control with oral or IV medications. We will try to transition him from the IV medications more to the oral medications and he may potentially be ready for home tomorrow. We'll continue to follow patient closely.
--- NOTE | 2024-03-21 15:15 | P.PN ---
Subjective Progress Note Date: 03/21/24 Patient is a 58-year-old male with a known history of hypertension, osteoarthritis, obstructive sleep apnea on CPAP at home, chronic pain, prior history of bariatric surgery/gastric sleeve and prior history of smoking. Patient was admitted to hospital for elective lumbar spinal fusion surgery L5- S1. Patient was found to have spinal stenosis L4-L5, herniated nucleus pulposus L4-L5, adjacent level degeneration, history of prior decompression and fusion L5-S1, lower extremity radiculopathy and lower extremity weakness. Patient is status post surgery. Tolerated very well. Patient states that he is able to move his left leg better after surgery. Denied any numbness or tingling sensation. No bowel or bladder incontinence. Denied any nausea or vomiting. No fever no chills. No cough or purulent b reath. No chest pain or shortness of breath. Laboratory data is not available at this time. Postoperatively blood pressure 95/60 pulse 96 respiration 18 pulse ox 88% on room air. 03/19/2024 Patient is seen in follow-up today status post decompression and fusion yesterday. Patient reports to feeling well although fatigued and continues with significant pain. Patient reports is passing gas but no bowel movement as of yet. Carrillo catheter is being discontinued today and patient due to void, mon itor for any retention. Patient home blood pressures have been refused as he reports to feeling concerned about hypotension. Will monitor blood pressures and if becoming more elevated will discuss further with resuming. Patient is afebrile with no reports of chest pain or shortness of breath. Patient reports has been using incentive spirometer and encouraged to use at least 10 times every hour while awake. Patient instructed to get up out of the bed with restrictions per orthopedics. Patient reports to tolerating diet with no reported nausea or vomiting. 03/20/2024 Patient is seen in follow-up today reports continued back pain and has not had a bowel movement as of yet. Patient does have as needed and scheduled bowel regimen on board. Patient reports significant pain when getting up and has been working with physical therapy. Working on pain management with orthopedics and will be monitored for improvements in pain. Patient is afebrile with no reports of chest pain or shortness of breath, oxygen saturations are above 92% on room air and patient reports has been using incentive spirometer. Encouraged increase activity as tolerated as well as continued I-S use at least 10 times every hour while awake. Patient is eating and drinking, although not much of an appetite with intermittent periods of nausea but no vomiting. 03/21/2024 Patient is evaluated today in follow up on the medical floor. Patient reports having a small BM yesterday. He is passing minimal gas today. Was up ambulating to the restroom today reports having severe lower back pain. He has been mostly resting in bed today because of this. Blood pressure running in the low 90-100s systolic. Review of systems: Constitutional: reports of fatigue, no fever, or chills Cardiovascular: No reports of chest pain or palpitations Respiratory: No reports of shortness of breath or cough GI: reports of occasional nausea, no vomiting, or diarrhea, reports not much of an appetite, reports not passing much gas and has not had a bowel movement as of yet but does feel some abdominal cramping like he may have a bowel movement soon : No reports of dysuria or retention Neurovascular: reports of generalized weakness and continued back pain All medications have been reviewed PHYSICAL EXAMINATION: Patient is laying in the bed comfortably, no acute distress, awake alert and oriented.. Well-developed, morbidly obese HEENT: Normocephalic. Neck is supple. Pupils reactive. Nostrils clear. Oral cavity is moist. Neck reveals no JVD, carotid bruits, or thyromegaly. CHEST EXAMINATION: Trachea is central. Symmetrical expansion. Bibasilar diminished sounds otherwise lung payton clear to auscultation and percussion. CARDIAC: Normal S1, S2 with no gallops. No murmurs ABDOMEN: Soft. Morbidly obese. Bowel sounds normal. No organomegaly. No abdominal bruits. Extremities: reveal no edema. No clubbing or cyanosis Neurologically awake, alert, oriented x3 able to move all extremities. No gross focal deficits noted, diffusely weak Skin: No rash or skin lesions. Psychiatric: Cooperative. Non-suicidal Musculoskeletal: No joint swelling or deformity. Assessment: Patient is status post removal of hardware L5-S1 and evaluation of fusion L4 S1 with findings of solid fusion and laminectomy and decompression. Postoperative hypotension. Improved now. Hypertension history Obstructive sleep apnea on CPAP Chronic low back pain and prior history of L5-S1 fusion surgery History of bariatric surgery/gastric sleeve. Prior history of smoking Morbid obesity with BMI 45.3 GI and DVT prophylaxis as per primary team Full code Plan: Patient will be continued on pain management, bowel regimen per orthopedics. Have scheduled as well as as needed bowel regimen as patient reports is not passing much gas did have a small BM yesterday Encourage incentive spirometer use at least 10 times every hour while awake Continue to monitor blood pressure closely. Limit narcotic pain medication use. Patient is eating and drinking with no reported vomiting and will discontinue IV fluids Blood pressure has been running in the low 100-90s systolic. Amlodipine has been stopped and losartan decreased. Will monitor blood pressure and cant titrate the losartan if needed. We will continue to follow with orthopedics during hospitalization. Thank you kindly for this consultation. The impression and plan of care has been dictated by Danielle Bird, Nurse Practitioner as directed. Dr. Cheryl MD I have performed a history and examination and MDM of this patient, discussed the same with the dictator, and agree with the dictator's assessment and plan as written ,documented as a scribe. Based on total visit time, I have performed more than 50% of the visit. Objective - Vital Signs Vital signs: Vital Signs Temp 98.2 F 03/21/24 13:25 Pulse 86 03/21/24 07:25 Resp 17 03/21/24 13:25 BP 95/51 03/21/24 13:25 Pulse Ox 97 03/21/24 13:25 FiO2 Intake & Output 03/20/24 03/21/24 03/21/24 18:59 06:59 18:59 Intake Total 2100 Balance 2100 Intake: Oral 2100 Other: Voiding Method Toilet # Voids 1 2 - Labs CBC & Chem 7: 03/19/24 05:56 03/19/24 05:56 Assessment and Plan Time with Patient: Less than 30
[2024-03-22] MEDS: LOSARTAN 25 MG TAB PO SCH (08:53)
[2024-03-22 10:38] LABS: BUN/Creat Ratio 16.38 Ratio (12.00-20.00); Blood Urea Nitrogen 13.1 mg/dL (9.0-27.0); Calcium 8.7 mg/dL (8.7-10.3); Carbon Dioxide 26.2 mmol/L (21.6-31.8); Chloride 104 mmol/L (96-109); Glucose 104 mg/dL (70-110); Potassium 3.7 mmol/L (3.5-5.5); Sodium 141 mmol/L (135-145)
--- NOTE | 2024-03-22 12:18 | P.PN ---
Progress Note - Text Progress Note Date: 03/22/24 Postoperative day #4 Patient is seen and examined today at bedside. The patient has some pain around the surgical site as expected, but is moving somewhat better. His most difficult time of movement is when he is trying to get in and out of bed and he is still relying heavily on the bed rails in order to get in and out.. Pain is being controlled with medication better today as he converts over to orals Physical Exam Afebrile with stable vital signs Abdomen is soft nontender. Chest has good excursion deep and space expiration The incision site is clean dry and intact. No erythema there is no purulence. There is no active drainage Extremities have not had neurologic change from prior to surgery. He has sustained dorsiflexion plantarflexion EHL Calves and thighs were soft nontender without evidence of DVT. Assessment/Plan Postoperative day #4 status post minimally base of decompression fusion L4-5 with extension of his prior fusion from 5 1 Patient is progressing a little bit slowly from the surgery in terms of his mobility. We will continue to increase the patient's mobilization with therapy. He is starting make some progress but still relying on the bed rails. He may start to feel more mobile and if so it is okay for him to discharge home today. However if he does not feel safe getting in and out of bed then he may need another night here in the hospital. We will continue pain control with oral or IV medications. We'll continue to follow patient closely.
--- NOTE | 2024-03-22 12:22 | P.DS ---
Providers Date of admission: 03/18/24 05:40 Attending physician: Ramin Altman Consults: 03/18/24 10:48 Consult Physician Routine Consulting Provider: Niki Dumont Consult Reason/Comments: Medical management Do you want consulting provider notified?: Yes Primary care physician: Navdeep Oneill [facility] [place] Hospital Course: Hospital Course Postoperative day #4 The patient presented on day of his admission as per his operative note for his surgery for his spinal stenosis with lower EXTR and radiculopathy. Patient is seen and examined today at bedside. The patient has some pain around the surgical site as expected, but is moving somewhat better. His most difficult time of movement is when he is trying to get in and out of bed and he is still relying heavily on the bed rails in order to get in and out.. Pain is being controlled with medication better today as he converts over to orals Physical Exam Afebrile with stable vital signs Abdomen is soft nontender. Chest has good excursion deep and space expiration The incision site is clean dry and intact. No erythema there is no purulence. There is no active drainage Extremities have not had neurologic change from prior to surgery. He has sustained dorsiflexion plantarflexion EHL Calves and thighs were soft nontender without evidence of DVT. Assessment/Plan Postoperative day #4 status post minimally base of decompression fusion L4-5 with extension of his prior fusion from 5 1 Patient is progressing a little bit slowly from the surgery in terms of his mobility. We will continue to increase the patient's mobilization with therapy. He is starting make some progress but still relying on the bed rails. He may start to feel more mobile and if so it is okay for him to discharge home today. However if he does not feel safe getting in and out of bed then he may need another night here in the hospital. We will continue pain control with oral or IV medications. We'll continue to follow patient closely. The patient has been making good progress postoperatively. They have completed the prophylactic antibiotics without any signs or symptoms of infection. The patient has been able to advance their diet, and is tolerating diet adequately. The pain was initially controlled with IV medications and is now controlled appropriately with oral medications. The patient has been able to increase their mobilization. The patient has progressed appropriately. I think they are in good stable condition for discharge today. They will be sent home with appropriate prescriptions. I answered their questions to the best of my ability in a language that they can understand and they are agreeable with the plan. They will follow up as directed. Patient Condition at Discharge: Fair Plan - Discharge Summary Discharge Rx Participant: Yes New Discharge Prescriptions: New HYDROcodone/APAP 5-325MG [Henniker 5] 1 each PO Q4HR PRN #42 tab PRN Reason: Pain Sennosides-Docusate Sodium [Senokot-S] 1 tab PO BID PRN #60 tablet PRN Reason: Constipation Cyclobenzaprine [Flexeril] 10 mg PO TID PRN #60 tab PRN Reason: Muscle Spasm Continue Acetaminophen Tab [Tylenol] 500 - 1,000 mg PO Q4-6H PRN PRN Reason: Pain amLODIPine BESYLATE 2.5 mg PO QAM Losartan Potassium 100 mg PO QAM Discharge Medication List Acetaminophen Tab [Tylenol] 500 - 1,000 mg PO Q4-6H PRN 03/10/24 [History] Losartan Potassium 100 mg PO QAM 03/10/24 [History] amLODIPine BESYLATE 2.5 mg PO QAM 03/10/24 [History] Cyclobenzaprine [Flexeril] 10 mg PO TID PRN #60 tab 03/20/24 [Rx] HYDROcodone/APAP 5-325MG [Henniker 5] 1 each PO Q4HR PRN #42 tab 03/20/24 [Rx] Sennosides-Docusate Sodium [Senokot-S] 1 tab PO BID PRN #60 tablet 03/20/24 [Rx] Follow up Appointment(s)/Referral(s): Asim Smith, PAC [PHYSICIAN SPECTROGRAPHIC ANALYST] - 03/30/24 2:30 pm (Patient may follow-up with Asim Smith PA-C or Dr. Renzo Altman at [facility] in 2-3 weeks following discharge. ) Activity/Diet/Wound Care/Special Instructions: 1. Patient may shower with Optifoam dressings intact. 2. Patient may remove Optifoam dressing in 3 days and shower without a dressing at that time. 3. Patient should refrain from driving until at least after their first follow- up appointment in the office. 4. Patient should avoid excessive bending, twisting, lifting; avoid overhead lifting; no lifting greater than 10 pounds 5. Take medications as prescribed 6. Patient should avoid anti-inflammatory medications over the next 6 weeks postoperatively 7. Do not soak in tub
--- NOTE | 2024-03-22 13:42 | P.PN ---
Subjective Progress Note Date: 03/22/24 Patient is a 58-year-old male with a known history of hypertension, osteoarthritis, obstructive sleep apnea on CPAP at home, chronic pain, prior history of bariatric surgery/gastric sleeve and prior history of smoking. Patient was admitted to hospital for elective lumbar spinal fusion surgery L5- S1. Patient was found to have spinal stenosis L4-L5, herniated nucleus pulposus L4-L5, adjacent level degeneration, history of prior decompression and fusion L5-S1, lower extremity radiculopathy and lower extremity weakness. Patient is status post surgery. Tolerated very well. Patient states that he is able to move his left leg better after surgery. Denied any numbness or tingling sensation. No bowel or bladder incontinence. Denied any nausea or vomiting. No fever no chills. No cough or purulent b reath. No chest pain or shortness of breath. Laboratory data is not available at this time. Postoperatively blood pressure 95/60 pulse 96 respiration 18 pulse ox 88% on room air. 03/19/2024 Patient is seen in follow-up today status post decompression and fusion yesterday. Patient reports to feeling well although fatigued and continues with significant pain. Patient reports is passing gas but no bowel movement as of yet. Carrillo catheter is being discontinued today and patient due to void, mon itor for any retention. Patient home blood pressures have been refused as he reports to feeling concerned about hypotension. Will monitor blood pressures and if becoming more elevated will discuss further with resuming. Patient is afebrile with no reports of chest pain or shortness of breath. Patient reports has been using incentive spirometer and encouraged to use at least 10 times every hour while awake. Patient instructed to get up out of the bed with restrictions per orthopedics. Patient reports to tolerating diet with no reported nausea or vomiting. 03/20/2024 Patient is seen in follow-up today reports continued back pain and has not had a bowel movement as of yet. Patient does have as needed and scheduled bowel regimen on board. Patient reports significant pain when getting up and has been working with physical therapy. Working on pain management with orthopedics and will be monitored for improvements in pain. Patient is afebrile with no reports of chest pain or shortness of breath, oxygen saturations are above 92% on room air and patient reports has been using incentive spirometer. Encouraged increase activity as tolerated as well as continued I-S use at least 10 times every hour while awake. Patient is eating and drinking, although not much of an appetite with intermittent periods of nausea but no vomiting. 03/21/2024 Patient is evaluated today in follow up on the medical floor. Patient reports having a small BM yesterday. He is passing minimal gas today. Was up ambulating to the restroom today reports having severe lower back pain. He has been mostly resting in bed today because of this. Blood pressure running in the low 90-100s systolic. 03/22/2024 Patient evaluated in follow-up in the medical floor. No acute complaints overnight does report that his abdominal pain is better than it was yesterday. Electrolytes and renal function remain within normal limits. He is not reporting any shortness of breath or chest pain no nausea vomiting or diarrhea. He is tolerating diet. Blood pressure is not low now. Review of systems: Constitutional: reports of fatigue, no fever, or chills Cardiovascular: No reports of chest pain or palpitations Respiratory: No reports of shortness of breath or cough GI: reports of occasional nausea, no vomiting, or diarrhea, reports not much of an appetite, reports not passing much gas and has not had a bowel movement as of yet but does feel some abdominal cramping like he may have a bowel movement soon : No reports of dysuria or retention Neurovascular: reports of generalized weakness and continued back pain All medications have been reviewed PHYSICAL EXAMINATION: Patient is laying in the bed comfortably, no acute distress, awake alert and oriented.. Well-developed, morbidly obese HEENT: Normocephalic. Neck is supple. Pupils reactive. Nostrils clear. Oral cavity is moist. Neck reveals no JVD, carotid bruits, or thyromegaly. CHEST EXAMINATION: Trachea is central. Symmetrical expansion. Bibasilar diminished sounds otherwise lung payton clear to auscultation and percussion. CARDIAC: Normal S1, S2 with no gallops. No murmurs ABDOMEN: Soft. Morbidly obese. Bowel sounds normal. No organomegaly. No abdominal bruits. Extremities: reveal no edema. No clubbing or cyanosis Neurologically awake, alert, oriented x3 able to move all extremities. No gross focal deficits noted, diffusely weak Skin: No rash or skin lesions. Psychiatric: Cooperative. Non-suicidal Musculoskeletal: No joint swelling or deformity. Assessment: Patient is status post removal of hardware L5-S1 and evaluation of fusion L4 S1 with findings of solid fusion and laminectomy and decompression. Postoperative hypotension. Improved now. Hypertension history Obstructive sleep apnea on CPAP Chronic low back pain and prior history of L5-S1 fusion surgery History of bariatric surgery/gastric sleeve. Prior history of smoking Morbid obesity with BMI 45.3 GI and DVT prophylaxis as per primary team Full code Plan: Patient will be continued on pain management, bowel regimen per orthopedics. Have scheduled as well as as needed bowel regimen as patient reports is not passing much gas did have a small BM yesterday Encourage incentive spirometer use at least 10 times every hour while awake Continue to monitor blood pressure closely. Limit narcotic pain medication use. Patient is eating and drinking with no reported vomiting and will discontinue IV fluids Blood pressure has been running in the low 100-90s systolic. Amlodipine has been stopped and losartan decreased. Will monitor blood pressure and can titrate the losartan if needed. We will continue to follow with orthopedics during hospitalization. Thank you kindly for this consultation. Medically patient is doing well and is considered stable for discharge home. The impression and plan of care has been dictated by Danielle Bird, Nurse Practitioner as directed. Dr. Cheryl MD I have performed a history and examination and MDM of this patient, discussed the same with the dictator, and agree with the dictator's assessment and plan as written ,documented as a scribe. Based on total visit time, I have performed more than 50% of the visit. Objective - Vital Signs Vital signs: Vital Signs Temp 98.9 F 03/22/24 08:10 Pulse 102 H 03/22/24 08:10 Resp 20 03/22/24 08:10 BP 137/81 03/22/24 08:10 Pulse Ox 93 L 03/22/24 08:10 FiO2 Intake & Output 03/21/24 03/22/24 03/22/24 18:59 06:59 18:59 Intake Total 2100 Balance 2100 Intake: Oral 2100 Other: Voiding Method Toilet Toilet Urinal # Voids 3 2 - Labs CBC & Chem 7: 03/19/24 05:56 03/22/24 06:04 Assessment and Plan Time with Patient: Less than 30
[2024-03-22 14:35] VITALS: BP 126/85; PULSE 96; RESP 18; TEMP 98.6
== END 2024-03-22 16:04 | disposition home or self-care (01) ==
LOC: OR 05:39 → 4SSUR 05:40
PROVIDERS: ADMIT Orthopaedic Surgery Orthopaedic Surgery of the Spine; ATTEND Orthopaedic Surgery Orthopaedic Surgery of the Spine
DX: M47.26 Other spondylosis with radiculopathy, lumbar region (principal); M48.07 Spinal stenosis, lumbosacral region; M51.16 Intervertebral disc disorders with radiculopathy, lumbar region; E66.9 Obesity, unspecified; G47.33 Obstructive sleep apnea (adult) (pediatric); G89.29 Other chronic pain; I10 Essential (primary) hypertension; I95.81 Postprocedural hypotension; E66.01 Morbid (severe) obesity due to excess calories; K21.9 Gastro-esophageal reflux disease without esophagitis; M19.90 Unspecified osteoarthritis, unspecified site; Z87.891 Personal history of nicotine dependence; Z98.84 Bariatric surgery status; Z68.42 Body mass index [BMI] 45.0-49.9, adult
CPT/HCPCS: 22633; 22853; 20930; 20936; 22842; 63052; 97116; 97161; 80048 ×2; 85025; 72100; G0378 ×4; C1713 ×2; C1762; J2250; J0330; J2710; J0690 ×3; J2405; J2003; J3010; J1171 ×7; J2704; J2371; J0665; J1596

== ENCOUNTER → 2024-03-31 | Outpatient (CLI) | payer BC ==
--- NOTE | 2024-03-31 11:07 | US ---
EXAMINATION TYPE: US venous doppler duplex LE LT DATE OF EXAM: 03/31/2024 10:24 AM COMPARISON: NONE CLINICAL INDICATION: Male, 58 years old with history of I80.9 PHLEBITIS AND THROMBOPHLEBITIS OF UNSPE CIFIE; Edema left leg. , Pain called Dr. Altman with results. TECHNIQUE: The lower extremity deep venous system is examined utilizing real time linear array sonog amado with graded compression, color doppler sonography, and spectral doppler. SIDE PERFORMED: Left FINDINGS: VESSELS IMAGED: Common Femoral Vein Deep Femoral Vein Greater Saphenous Vein * Femoral Vein Popliteal Vein Small Saphenous Vein * Proximal Calf Veins (* superficial vessels) Left Leg: Positive for DVT popliteal vein, Color Doppler imaging shows patency of the vessels. Spect ral waveforms are within normal limits. IMPRESSION: Popliteal vein DVT. [facility], , 03/31/2024 11:04 AM
== END | disposition home or self-care (01) ==
LOC: RADUSWWP 09:49
PROVIDERS: ATTEND Orthopaedic Surgery Orthopaedic Surgery of the Spine
DX: I82.532 Chronic embolism and thrombosis of left popliteal vein (principal)

== ENCOUNTER 2024-04-01 09:06 | Emergency (ER) | payer BC ==
[2024-04-01 09:11] VITALS: RESP 18
--- NOTE | 2024-04-01 09:38 | ED ---
Male Urogenital HPI - General Chief complaint: Urogenital Stated complaint: blood in urine Time Seen by Provider: 04/01/24 09:13 Source: patient, RN notes reviewed Mode of arrival: ambulatory Limitations: no limitations - History of Present Illness Initial comments: This is a 58-year-old male who presents to the emergency department for hematuria. Patient was diagnosed with a DVT in his left leg yesterday and started on Xarelto. However, he has only had 1 tablet of this and states that since then he has had blood in his urine each time he goes to the restroom. He has not taken his morning dose of the medication today due to concern about this. He does have a history of kidney stones causing blood in his urine, some of which have been painless. Denies any current abdominal pain. He has chronic ongoing back pain, but nothing new. Denies any burning with urination, fevers, or chills. - Related Data Home Medications Medication Instructions Recorded Confirmed Acetaminophen Tab [Tylenol] 1,000 mg PO Q4-6H PRN 03/10/24 04/01/24 Cephalexin [Keflex] 500 mg PO QID 04/01/24 04/01/24 HYDROcodone/APAP 5-325MG [Alfred 5] 1 tab PO Q4HR PRN 04/01/24 04/01/24 Rivaroxaban [Xarelto] 15 mg PO BID 04/01/24 04/01/24 Previous Rx's Medication Instructions Recorded Cyclobenzaprine [Flexeril] 10 mg PO TID PRN #60 tab 03/20/24 Sennosides-Docusate Sodium 1 tab PO BID PRN #60 tablet 03/20/24 [Senokot-S] Losartan [Cozaar] 25 mg PO DAILY #30 tab 03/22/24 Allergies Allergy/AdvReac Type Severity Reaction Status Date / Time lisinopril AdvReac Cough Verified 04/01/24 10:32 Review of Systems ROS Statement: Those systems with pertinent positive or pertinent negative responses have been documented in the HPI. ROS Other: All systems not noted in ROS Statement are negative. Past Medical History Past Medical History: GERD/Reflux, Hypertension, Osteoarthritis (OA), Sleep Apnea/CPAP/BIPAP Additional Past Medical History / Comment(s): CHRONIC PAIN. USES CPAP MACHINE. History of Any Multi-Drug Resistant Organisms: None Reported Past Surgical History: Back Surgery, Bariatric Surgery, Orthopedic Surgery Additional Past Surgical History / Comment(s): RIGHT KNEE ARTHROSCOPY, GASTRIC SLEEVE-10 years ago, sleep apnea surgery(failed). Past Anesthesia/Blood Transfusion Reactions: Motion Sickness, Postoperative Nausea & Vomiting (PONV) Additional Past Anesthesia/Blood Transfusion Reaction / Comment(s): Rare motion sickness. Past Psychological History: No Psychological Hx Reported Smoking Status: Former smoker Past Alcohol Use History: Occasional Past Drug Use History: None Reported - Past Family History Mother Family Medical History: Cancer Additional Family Medical History / Comment(s): Pancreatic cancer. Father Family Medical History: Cancer Additional Family Medical History / Comment(s): Colon cancer. General Exam Limitations: no limitations General appearance: alert, in no apparent distress Head exam: Present: atraumatic, normocephalic, normal inspection Respiratory exam: Present: normal lung sounds bilaterally. Absent: respiratory distress, wheezes, rales, rhonchi, stridor Cardiovascular Exam: Present: regular rate, normal rhythm, normal heart sounds. Absent: systolic murmur, diastolic murmur, rubs, gallop, clicks GI/Abdominal exam: Present: soft, normal bowel sounds. Absent: distended, tenderness, guarding, rebound, rigid Neurological exam: Present: alert, oriented X3, CN II-XII intact Psychiatric exam: Present: normal affect, normal mood Skin exam: Present: warm, dry, intact, normal color. Absent: rash Course Vital Signs 04/01/24 04/01/24 09:08 11:57 Temperature 98.5 F 98 F Pulse Rate 65 78 Respiratory 18 18 Rate Blood Pressure 171/91 156/87 O2 Sat by Pulse 96 99 Oximetry Medical Decision Making - Medical Decision Making This is a 58-year-old male who presents to the emergency department for hematuria. Was pt. sent in by a medical professional or institution? @ -No Did you speak to anyone other than the patient for history? @ -No Did you review nursing and triage notes? @ -Yes, and I agree, it is accurate with regards to the patient's symptoms. Were old charts reviewed? @ -Yes, duplex ultrasound of the left lower extremity from yesterday demonstrating a DVT in the popliteal vein Differential Diagnosis? @ -UTI, tumor, injury, kidney stone, this is not meant to be an all-inclusive list. EKG interpreted by me (3pts min.)? @ -Not obtained X-rays interpreted by me (1pt min.)? @ -Not obtained CT interpreted by me (1pt min.)? @ -CT scan of the abdomen and pelvis obtained. My interpretation identifies no evidence of a ureteral calculus. U/S interpreted by me (1pt. min.)? @ -Not obtained What testing was considered but not performed? (CT, X-rays, U/S, labs)? Why? @ -None What meds were considered but not given? Why? @ -None Did you discuss the management of the patient with other professionals? @ -Yes, Dr. Joel, vascular surgery, who advised that one dose of Xarelto should not cause carla hematuria and he would recommend treating the DVT. Did you reconcile home meds? @ -No Was smoking cessation discussed for >3mins.? @ -No Was critical care preformed (if so, how long)? @ -No Were there social determinants of health that impacted care today? How? (Homelessness, low income, unemployed, alcoholism, drug addiction, transportation, low edu. Level, literacy, decrease access to med. care, snf, rehab)? @ -No Was there de-escalation of care discussed even if they declined? (Discuss DNR or withdrawal of care, Hospice)? @ -No What co-morbidities impacted this encounter? (DM, HTN, Smoking, COPD, CAD, Cancer, CVA, Hep., AIDS, mental health diagnosis, sleep apnea, morbid obesity)? @ -DVT Was patient admitted / discharged? @ -Discharged. Lab work unremarkable. Hemoglobin within normal limits. Urinalysis contains a large amount of blood, but is unable to be fully characterized. There was no elevation in white blood cells. CT scan of the abdomen and pelvis obtained revealing no evidence of obstructive uropathy or ot her acute process. Case discussed with Dr. Joel, vascular surgery. He advised that it would be very unlikely for one dose of Xarelto to cause carla hematuria like that. He advised that he would recommend continuing to treat the DVT and having the patient follow-up with urology. If he continues to have bleeding, then he may need a filter placed. Discussed with the patient that it is advised he continue the Xarelto at this time given risk of clot progression if untreated. His hemoglobin is also within normal limits. He was given information for follow-up with urology and advised to contact them today for a follow-up appointment. Also advised follow-up with his PCP for reevaluation and repeat blood work. Patient discharged home in stable condition. Case discussed with ED attending Dr. Dao. Return precautions reviewed in depth, the patient is instructed to return to the emergency department with any new, worsening, or concerning symptoms. Patient verbalized understanding. Undiagnosed new problem with uncertain prognosis? @ -None Drug Therapy requiring intensive monitoring for toxicity (Heparin, Nitro, Insulin, Cardizem)? @ -None Were any procedures done? @ -None Diagnosis/symptom? @ -Hematuria, DVT Acute, or Chronic, or Acute on Chronic? @ -Acute Uncomplicated (without systemic symptoms) or Complicated (systemic symptoms)? @ -Uncomplicated Side effects of treatment? @ -None Exacerbation, Progression, or Severe Exacerbation] @ -Not applicable Poses a threat to life or bodily function? @ -Unlikely - Lab Data Result diagrams: 04/01/24 09:37 04/01/24 09:37 Lab Results 04/01/24 04/01/24 04/01/24 Range/Units 09:37 09:37 09:37 WBC 7.0 (3.8-10.6) k/uL RBC 4.79 (4.30-5.90) m/uL Hgb 14.1 (13.0-17.5) gm/dL Hct 42.9 (39.0-53.0) % MCV 89.7 (80.0-100.0) fL MCH 29.4 (25.0-35.0) pg MCHC 32.7 (31.0-37.0) g/dL RDW 11.9 (11.5-15.5) % Plt Count 356 (150-450) k/uL MPV 6.8 Neutrophils % 68 % Lymphocytes % 24 % Monocytes % 6 % Eosinophils % 2 % Basophils % 0 % Neutrophils # 4.7 (1.3-7.7) k/uL Lymphocytes # 1.7 (1.0-4.8) k/uL Monocytes # 0.4 (0-1.0) k/uL Eosinophils # 0.1 (0-0.7) k/uL Basophils # 0.0 (0-0.2) k/uL PT 10.9 (10.0-12.5) sec INR 1.0 (<1.2) APTT 23.9 (22.0-30.0) sec Sodium 141 (137-145) mmol/L Potassium 4.2 (3.5-5.1) mmol/L Chloride 105 (98-107) mmol/L Carbon Dioxide 28 (22-30) mmol/L Anion Gap 8 mmol/L BUN 15 (9-20) mg/dL Creatinine 0.93 (0.66-1.25) mg/dL Est GFR (CKD-EPI)AfAm >90 (>60 ml/min/1.73 sqM) Est GFR (CKD-EPI)NonAf >90 (>60 ml/min/1.73 sqM) Glucose 101 H (74-99) mg/dL Plasma Lactic Acid Jeffery (0.7-2.0) mmol/L Calcium 9.7 (8.4-10.2) mg/dL Total Bilirubin 0.6 (0.2-1.3) mg/dL AST 19 (17-59) U/L ALT 21 (4-49) U/L Alkaline Phosphatase 85 (38-126) U/L Total Protein 6.9 (6.3-8.2) g/dL Albumin 4.5 (3.5-5.0) g/dL Urine Color Urine Appearance (Clear) Urine RBC (0-5) /hpf Urine WBC (0-5) /hpf Urine Mucus (None) /hpf 04/01/24 04/01/24 Range/Units 09:37 10:27 WBC (3.8-10.6) k/uL RBC (4.30-5.90) m/uL Hgb (13.0-17.5) gm/dL Hct (39.0-53.0) % MCV (80.0-100.0) fL MCH (25.0-35.0) pg MCHC (31.0-37.0) g/dL RDW (11.5-15.5) % Plt Count (150-450) k/uL MPV Neutrophils % % Lymphocytes % % Monocytes % % Eosinophils % % Basophils % % Neutrophils # (1.3-7.7) k/uL Lymphocytes # (1.0-4.8) k/uL Monocytes # (0-1.0) k/uL Eosinophils # (0-0.7) k/uL Basophils # (0-0.2) k/uL PT (10.0-12.5) sec INR (<1.2) APTT (22.0-30.0) sec Sodium (137-145) mmol/L Potassium (3.5-5.1) mmol/L Chloride (98-107) mmol/L Carbon Dioxide (22-30) mmol/L Anion Gap mmol/L BUN (9-20) mg/dL Creatinine (0.66-1.25) mg/dL Est GFR (CKD-EPI)AfAm (>60 ml/min/1.73 sqM) Est GFR (CKD-EPI)NonAf (>60 ml/min/1.73 sqM) Glucose (74-99) mg/dL Plasma Lactic Acid Jeffery 1.4 (0.7-2.0) mmol/L Calcium (8.4-10.2) mg/dL Total Bilirubin (0.2-1.3) mg/dL AST (17-59) U/L ALT (4-49) U/L Alkaline Phosphatase (38-126) U/L Total Protein (6.3-8.2) g/dL Albumin (3.5-5.0) g/dL Urine Color Red Urine Appearance Bloody (Clear) Urine RBC >182 H (0-5) /hpf Urine WBC 2 (0-5) /hpf Urine Mucus Many H (None) /hpf - Radiology Data Radiology results: report reviewed, image reviewed Disposition Clinical Impression: Hematuria, DVT (deep venous thrombosis) Disposition: HOME SELF-CARE Instructions (If sedation given, give patient instructions): Hematuria (ED) Additional Instructions: Return to the emergency department with any new, worsening, or concerning symptoms. Continue taking your Xarelto as prescribed. Contact the urologist listed below for a follow-up appointment. Make sure you follow-up with your primary care provider as well. Is patient prescribed a controlled substance at d/c from ED?: No Referrals: Navdeep Forrest [Primary Care Provider] - 1-2 days Luis Gore MD [STAFF PHYSICIAN] - 1-2 days Time of Disposition: 11:47
[2024-04-01 09:51] LABS: Basophils % (A) 0 %; Eosinophils # (A) 0.1 k/uL (0-0.7); Eosinophils % (A) 2 %; HCT 42.9 % (39.0-53.0); HGB 14.1 gm/dL (13.0-17.5); Lymphocytes # (A) 1.7 k/uL (1.0-4.8); Lymphocytes % (A) 24 %; MCH 29.4 pg (25.0-35.0); MCHC 32.7 g/dL (31.0-37.0); MCV 89.7 fL (80.0-100.0); Mean Platelet Volume 6.8; Monocytes # (A) 0.4 k/uL (0-1.0); Monocytes % (A) 6 %; Neutrophils # (A) 4.7 k/uL (1.3-7.7); Neutrophils % (A) 68 %; Platelet Count 356 k/uL (150-450); RBC 4.79 m/uL (4.30-5.90); RDW 11.9 % (11.5-15.5)
[2024-04-01 10:00] LABS: ALT 21 U/L (4-49); AST 19 U/L (17-59); African American GFR (CKD) >90 (>60 ml/min/1.73 sqM); Albumin 4.5 g/dL (3.5-5.0); Alkaline Phosphatase 85 U/L (38-126); Anion Gap 8 mmol/L; Blood Urea Nitrogen 15 mg/dL (9-20); Calcium 9.7 mg/dL (8.4-10.2); Carbon Dioxide 28 mmol/L (22-30); Chloride 105 mmol/L (98-107); Glucose 101 mg/dL (74-99); Non-African American GFR(CKD) >90 (>60 ml/min/1.73 sqM); Potassium 4.2 mmol/L (3.5-5.1); Sodium 141 mmol/L (137-145); Total Bilirubin 0.6 mg/dL (0.2-1.3); Total Protein 6.9 g/dL (6.3-8.2)
[2024-04-01 10:10] LABS: Partial Thromboplastin Time 23.9 sec (22.0-30.0); Prothrombin Time 10.9 sec (10.0-12.5)
--- NOTE | 2024-04-01 10:16 | CT ---
EXAMINATION TYPE: CT abdomen pelvis wo con CT DLP: 2064.7 mGycm, Automated exposure control for dose reduction was used. DATE OF EXAM: 04/01/2024 10:02 AM COMPARISON: CT lumbar spine 02/02/2021 CLINICAL INDICATION:Male, 58 years old with history of Hematuria, hx of kidney stones; Hematuria afte r new meds (xarelto). No pain. History of kidney stones TECHNIQUE: Standard CT of the abdomen and pelvis without IV or oral contrast. Lack of IV or oral co ntrast limits evaluation of solid and hollow organ viscera. Coronal and sagittal reformats were perfo rmed. FINDINGS: LOWER CHEST: Right lower lobe 4 mm pulmonary nodule (series 204, image 27). Punctate left lower lobe calcified granuloma. ABDOMEN LIVER: Left hepatic lobe subcentimeter hypodense focus which is too small to characterize. Enlarged l iver measuring 21.8 cm in CC dimension. GALLBLADDER AND BILE DUCTS: Cholelithiasis with large gallstones measuring up to 3.6 cm. No surroundi ng inflammatory changes. No biliary ductal dilatation. PANCREAS: Unremarkable noncontrast appearance SPLEEN: Unremarkable noncontrast appearance ADRENAL GLANDS: Unremarkable noncontrast appearance. KIDNEYS AND URETERS: No right-sided hydronephrosis. Nonobstructive right lower pole 3 mm calculus. Right renal 2.1 cm cyst . The left-sided hydronephrosis. Nonobstructive 8 mm calculus within the left renal pelvis. Additional 2 nonobstructive left renal calculi measuring up to 6 mm. No hydroureter. PELVIS BLADDER: Underdistended but grossly unremarkable. REPRODUCTIVE: Coarse calcifications of the prostate gland are identified. ABDOMEN & PELVIS STOMACH AND BOWEL: Postsurgical changes from gastric sleeve. Possible fat-containing lesion lipoma ve rsus ingested low density within the distal stomach measuring up to 1.8 cm.Redundant sigmoid colon. A few scattered colonic diverticula without evidence for acute diverticulitis. The appendix is unremar kable. No evidence of bowel obstruction. PERITONEUM: No evidence of pneumoperitoneum or free fluid. VASCULATURE: No evidence of aortic aneurysm. MUSCULOSKELETAL: No acute osseous abnormalities. Postsurgical changes of the lumbar spine from L4 thr ough S1 with bilateral pedicular screws and disc spacers. Multilevel degenerative disc disease. LYMPH NODES: No gross evidence for lymphadenopathy. SOFT TISSUE/ABDOMINAL WALL: Small fat filled umbilical hernia. IMPRESSION: 1. No CT evidence for obstructive uropathy or acute abdominal/pelvic process within limitations of a noncontrast exam. 2. Nonobstructive bilateral renal calculi with a 8 mm calculus within the left renal pelvis. 3. Hepatomegaly. 4. Cholelithiasis. 5. Right lower lobe 4 mm pulmonary nodule. In a low-risk patient, no follow-up is recommended. In a h igh-risk patient consider optional CT chest in 12 months. [facility], , 04/01/2024 10:14 AM
[2024-04-01 11:00] LABS: Mucus,Urine Many /hpf; RBC,Urine >182 /hpf (0-5); WBC,Urine 2 /hpf (0-5)
[2024-04-01 11:01] LABS: Color,Urine Red
[2024-04-01 11:02] LABS: Appearance,Urine Bloody (Clear)
[2024-04-01 11:59] VITALS: BP 156/87; PULSE 78; TEMP 98
== END 2024-04-01 12:00 | disposition home or self-care (01) ==
LOC: EC 09:06
DX: I82.402 Acute embolism and thrombosis of unspecified deep veins of left lower extremity (principal); K80.20 Calculus of gallbladder without cholecystitis without obstruction; R31.9 Hematuria, unspecified; Z88.6 Allergy status to analgesic agent; Z87.891 Personal history of nicotine dependence
CPT/HCPCS: 36415; 74176; 80053; 81001; 83605; 85025; 85610; 85730; 99284

== ENCOUNTER → 2024-05-09 | Outpatient (CLI) | payer OTHER ==
--- NOTE | 2024-05-09 08:47 | XR ---
KUB. HISTORY: Gross hematuria COMPARISON: None. TECHNIQUE: 2 supine views of the abdomen were obtained. FINDINGS: The bowel gas pattern is nonspecific and there is no evidence of obstruction. There are 2 8 to 9 mm calcifications overlying the expected position of the left kidney possibly left renal calcifications. There are no calcifications in the expected course of the ureters. There is posterior and interbody fusion from L4 through S1. IMPRESSION: IMPRESSION: 1. 2 calcifications overlying the region of the left kidney possibly left renal calculi. 2. Nonspecific bowel gas pattern. Nonspecific abdomen without evidence of free air or obstruction. [facility], Workstation: JUAN ANTONIO, 05/09/2024 8:44 AM
== END | disposition home or self-care (01) ==
LOC: RADXRMAIN 08:04
PROVIDERS: ATTEND Urology
DX: N20.0 Calculus of kidney (principal); N28.89 Other specified disorders of kidney and ureter
CPT/HCPCS: 74018